=== PATIENT | female | born 1990 | race Caucasian/White ===

== ENCOUNTER 2016-11-01 08:50 | Emergency (ER) | payer MEDICAID, OTHER ==
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
[2016-11-01 10:27] VITALS: BP 106/78
== END 2016-11-01 10:15 | disposition home or self-care (01) ==
LOC: ER 08:50
DX: F41.9 Anxiety disorder, unspecified (principal)
CPT/HCPCS: 99283

== ENCOUNTER 2017-04-10 19:26 | Emergency (ER) | payer OTHER ==
[2017-04-10 20:49] VITALS: BP 111/76
== END 2017-04-10 23:00 | disposition left against medical advice (07) ==
LOC: ER 19:26
DX: Z53.9 Procedure and treatment not carried out, unspecified reason (principal); M79.673 Pain in unspecified foot

== ENCOUNTER 2017-08-18 10:17 | Emergency (ER) | payer OTHER, BC ==
[2017-08-18] MEDS ORDERED: DEXAMETHASONE SOD PHOS INJ 10 MG/1 ML VIAL IM ONE (10:47)
[2017-08-18 11:38] LABS: APPEARANCE,URINE SLIGHTLY-CLOUDY; BILIRUBIN,URINE NEGATIVE (NEGATIVE); COLOR,URINE YELLOW; GLUCOSE, URINE NEGATIVE (NEGATIVE); KETONES,URINE NEGATIVE (NEGATIVE); LEUKOCYTE ESTERASE,URINE LARGE (NEGATIVE); NITRITE,URINE NEGATIVE (NEGATIVE); PROTEIN,URINE NEGATIVE (NEGATIVE); URINE SPECIFIC GRAVITY 1.016; UROBILINOGEN,URINE NEGATIVE mg/dL (<2.0)
--- NOTE | 2017-08-18 13:05 | RADIOLOGY REPORT (SQ) ---
EXAM DESCRIPTION: L SPINE WHOLE COMPLETED DATE/TIME: 08/18/2017 12:47 pm REASON FOR STUDY: low back pain COMPARISON: None. NUMBER OF VIEWS: Five views including obliques. TECHNIQUE: AP, lateral, oblique, and sacral radiographic images acquired of the lumbar spine. LIMITATIONS: None. FINDINGS: MINERALIZATION: Normal. SEGMENTATION: Normal. No transitional anatomy. ALIGNMENT: Normal. VERTEBRAE: Maintained height. No fracture or worrisome bone lesion. DISCS: Preserved height. No significant osteophytes or end plate irregularity. POSTERIOR ELEMENTS: Pedicles and facets are intact. No pars defect or posterior arch defects. HARDWARE: None in the spine. PARASPINAL SOFT TISSUES: Normal. PELVIS: Intact as visualized. No fractures or worrisome bone lesions. SI joints intact. OTHER: No other significant finding. IMPRESSION: NORMAL 5 VIEW LUMBAR SPINE. TECHNICAL DOCUMENTATION: JOB ID: [id number] [employer]- All Rights Reserved
[2017-08-18 13:51] VITALS: BP 115/59
--- NOTE | 2017-08-18 13:58 | ER Document Report ---
ED Medical Screen (RME) - General Chief Complaint: Flank Pain Stated Complaint: BACK PAIN Time Seen by Provider: 08/18/17 10:36 Mode of Arrival: Ambulatory Information source: Patient Notes: This is a 26-year-old female with lower back pain radiating down the left buttock. 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 She denies any fever. She denies any vaginal discharge. She does have a history of kidney stones but this is not like her kidney stones. Patient states it is clearly worse when she leans forward. She denies any bowel or bladder incontinence. The patient denies any numbness to the saddle area. Patient denies any lower extremity weakness. TRAVEL OUTSIDE OF THE [place] IN LAST 30 DAYS: No - HPI Onset: Last week Onset/Duration: Gradual Quality of pain: Dull Severity: Moderate Pain Level: 3 Associated Symptoms: denies: Chills, Fever, Shortness of breath Exacerbated by: Movement Relieved by: Remaining still Similar symptoms previously: No Recently seen / treated by doctor: No - Related Data Smoking: Non-smoker Frequency of alcohol use: None Drug Abuse: None Allergies/Adverse Reactions: codeine [Codeine] Allergy (Verified 08/18/17 10:18) Past Medical History - General Information source: Patient - Social History Cigarette use (# per day): No Chew tobacco use (# tins/day): No Frequency of alcohol use: None Drug Abuse: None Lives with: Family Family history: None - Past Medical History Cardiac Medical History: Reports: None Pulmonary Medical History: Reports: None Neurological Medical History: Reports: Hx Migraine Endocrine Medical History: Reports: None Renal/ Medical History: Reports: Hx Kidney Stones. Denies: Hx Peritoneal Dialysis Musculoskeltal Medical History: Reports Hx Musculoskeletal Trauma - sprains Skin Medical History: Reports Hx Eczema Psychiatric Medical History: Reports: Hx Anxiety, Hx Depression Past Surgical History: Reports: Hx Myringotomy, Hx Tubal Ligation - Immunizations Immunizations up to date: No Hx Diphtheria, Pertussis, Tetanus Vaccination: No Review of Systems - Review of Systems Constitutional: denies: Chills, Fever EENT: No symptoms reported Cardiovascular: No symptoms reported Respiratory: No symptoms reported Gastrointestinal: No symptoms reported. denies: Abdominal pain, Diarrhea, Nausea, Vomiting Genitourinary: denies: Burning, Dysuria, Frequency Female Genitourinary: No symptoms reported Musculoskeletal: See HPI Skin: No symptoms reported Hematologic/Lymphatic: No symptoms reported Neurological/Psychological: No symptoms reported Physical Exam - Vital signs Vitals: Temp Pulse Resp BP Pulse Ox 98.3 F 87 20 111/69 99 08/18/17 10:22 08/18/17 10:22 08/18/17 10:22 08/18/17 10:22 08/18/17 10:22 Notes: Physical exam: GENERAL: 26-year-old female, alert and oriented 3, no acute distress. HEAD: Atraumatic, normocephalic. EYES: Pupils equal round and reactive to light, extraocular movements intact, sclera anicteric, conjunctiva are normal. ENT: TMs normal, nares patent, oropharynx clear without exudates. Moist mucous membranes. NECK: Normal range of motion, supple without obvious mass or JVD. LUNGS: Breath sounds clear to auscultation bilaterally and equal. No wheezes rales or rhonchi. HEART: Regular rate and rhythm without murmurs, rubs or gallops. ABDOMEN: Soft, normoactive bowel sounds. No tenderness to palpation. No guarding, no rebound. No masses appreciated. EXTREMITIES: Normal range of motion, no pitting or edema. No clubbing or cyanosis. NEUROLOGICAL: Cranial nerves II through XII grossly intact. Normal speech, moving all extremities. PSYCH: Normal mood, normal affect. SKIN: Warm, Dry, normal turgor, no rashes or lesions noted. Course - Re-evaluation Re-evalutation: 08/18/17 13:54 Note: Patient does have some white cells in the urine. I do not see any significant blood. I will treat her for UTI. I did send a urine culture. By her own accounts, this symptoms today are different than her kidney stones in the past. She does not have any tenderness over the CVA on the left (I do not think she has any pyelonephritis) on physical exam, patient seems to be uncomfortable when flexing forward. She is neurovascularly intact. 08/18/17 13:55 - Vital Signs Vital signs: Temp Pulse Resp BP Pulse Ox 98.6 F 93 16 115/59 L 99 08/18/17 13:50 08/18/17 13:50 08/18/17 13:50 08/18/17 13:50 08/18/17 13:50 - Laboratory Laboratory results interpreted by me: 08/18/17 11:00 Urine Blood SMALL H Ur Leukocyte Esterase LARGE H - Diagnostic Test Radiology reviewed: Image reviewed, Reports reviewed - LS spine films show no acute bony injury Doctor's Discharge - Discharge Clinical Impression: Back pain, UTI Condition: Stable Disposition: HOME, SELF-CARE Additional Instructions: Thank you for choosing [facility] for your care. The examination and treatment you have received in the Emergency Department today has been rendered on an emergency basis only and is not intended to be a substitute for complete medical care. You should contact your follow-up physician as it is important that she/he examine you for any new or remaining problems. If your problem worsens or new symptoms appear and you are unable to arrange prompt follow-up care, return to the Emergency Department. Specific signs to look out for: Fever (temperature greater than 100.4), worsening pain, weakness, or any concerns or getting worse per Any other instructions: Rest, try heating pads, take ibuprofen for the pain, take Percocet for pain unrelieved with the ibuprofen Primary Care Doctor's affiliated with [facility]: If you do not have a primary care doctor or you are unable to get an appointment during that time, you can try one of the doctor's below. These are internal medicine doctor's that have admitting priveledges to the hospital ( they will see you both in the office as well as in this hospital if you are ever hospitalized here). Dr. Suzan Campos [address], [place] [address] [phone] Dr Arrieta Address: [address] [place] [address] [place] [id number] Villalobos Address: [address] [place] [address] [place] [address] Prescriptions: Methocarbamol [Robaxin 500 mg Tablet] 500 mg PO BID #20 tablet Oxycodone HCl/Acetaminophen [Percocet 5-325 mg Tablet] 1 - 2 tab PO ASDIR PRN # 15 tablet PRN Reason: Forms: Return to Work
== END 2017-08-18 14:01 | disposition home or self-care (01) ==
LOC: ER 10:17
DX: N39.0 Urinary tract infection, site not specified (principal); M54.5 Low back pain; Z87.442 Personal history of urinary calculi; Z88.5 Allergy status to narcotic agent
CPT/HCPCS: 99284; 96372; 87086; 81025; 81001; 72110; J1100

== ENCOUNTER 2017-08-28 05:15 | Emergency (ER) | payer BC, OTHER ==
[2017-08-28 06:17] LABS: A TYPE INFLUENZA AG NEGATIVE (NEGATIVE)
[2017-08-28 06:18] LABS: B INFLUENZA AG NEGATIVE (NEGATIVE)
--- NOTE | 2017-08-28 07:22 | ER Document Report ---
ED General - General Chief Complaint: Cold Symptoms Stated Complaint: FLU LIKE SYMPTOMS Time Seen by Provider: 08/28/17 06:11 TRAVEL OUTSIDE OF THE [place] IN LAST 30 DAYS: No - HPI Patient complains to provider of: Flulike symptoms Notes: Patient coming in for evaluation of flulike symptoms. Patient states cough ongoing for the last 4 days. Patient denies any fevers chills nausea vomiting. Patient resting currently upon my evaluation patient denies any recent travel denies any recent antibiotics. Patient is Yobani been started on antibiotics patient states she took 1 patient is unaware of the antibiotic she took. - Related Data Allergies/Adverse Reactions: codeine [Codeine] Allergy (Verified 08/28/17 05:16) Past Medical History - Social History Smoking Status: Unknown if Ever Smoked Family History: CVA, DM, Hyperlipidemia, Hypertension, Malignancy, Thyroid Disfunction. denies: Arthritis Patient has suicidal ideation: No Patient has homicidal ideation: No Neurological Medical History: Reports: Hx Migraine Renal/ Medical History: Reports: Hx Kidney Stones. Denies: Hx Peritoneal Dialysis Musculoskeltal Medical History: Reports Hx Musculoskeletal Trauma - sprains Skin Medical History: Reports Hx Eczema Psychiatric Medical History: Reports: Hx Anxiety, Hx Depression Past Surgical History: Reports: Hx Myringotomy, Hx Tubal Ligation - Immunizations Immunizations up to date: No Hx Diphtheria, Pertussis, Tetanus Vaccination: No Review of Systems - Review of Systems Constitutional: No symptoms reported EENT: No symptoms reported Cardiovascular: No symptoms reported Respiratory: Cough Gastrointestinal: No symptoms reported Genitourinary: No symptoms reported Female Genitourinary: No symptoms reported Musculoskeletal: No symptoms reported Skin: No symptoms reported Hematologic/Lymphatic: No symptoms reported Neurological/Psychological: No symptoms reported -: Yes All other systems reviewed and negative Physical Exam - Vital signs Vitals: Temp Pulse Resp BP Pulse Ox 98.3 F 94 19 103/68 98 08/28/17 05:31 08/28/17 05:31 08/28/17 05:31 08/28/17 05:31 08/28/17 05:31 Interpretation: Normal - General General appearance: Appears well, Alert - HEENT Head: Normocephalic, Atraumatic Eyes: Normal Pupils: PERRL - Respiratory Respiratory status: No respiratory distress Chest status: Nontender Breath sounds: Nonproductive cough Chest palpation: Normal - Cardiovascular Rhythm: Regular Heart sounds: Normal auscultation Murmur: No - Abdominal Inspection: Normal Distension: No distension Bowel sounds: Normal Tenderness: Nontender Organomegaly: No organomegaly - Back Back: Normal, Nontender - Extremities General upper extremity: Normal inspection, Nontender, Normal color, Normal ROM , Normal temperature General lower extremity: Normal inspection, Nontender, Normal color, Normal ROM , Normal temperature, Normal weight bearing. No: Stiven's sign - Neurological Neuro grossly intact: Yes Cognition: Normal Orientation: AAOx4 Gilmer Coma Scale Eye Opening: Spontaneous Gilmer Coma Scale Verbal: Oriented [place] Coma Scale Motor: Obeys Commands Con[place]pc[place] Coma Scale Total: 15 Speech: Normal Motor strength normal: LUE, RUE, LLE, RLE Sensory: Normal - Psychological Associated symptoms: Normal affect, Normal mood - Skin Skin Temperature: Warm Skin Moisture: Dry Skin Color: Normal Course - Re-evaluation Re-evalutation: 08/28/17 15:16 Patient with a more likely viral story infection. Patient will be given loratadine D patient was encouraged to drink plenty of fluids follow-up primary care 08/28/17 15:17 Patient is to stop antibiotics - Vital Signs Vital signs: Temp Pulse Resp BP Pulse Ox 98.8 F 82 18 109/72 97 08/28/17 07:41 08/28/17 07:41 08/28/17 07:41 08/28/17 07:41 08/28/17 07:41 Discharge - Discharge Clinical Impression: Viral URI Condition: Good Disposition: HOME, SELF-CARE Instructions: Upper Respiratory Illness ([facility]) Additional Instructions: Your examination today is consistent with a viral upper respiratory infection. You can expect to continue to have symptoms for the next 3-4 days. You can expect to have a cough for the next 2-3 weeks. Recommend taking honey for your cough may also try [id number] medications for your symptoms. I would recommend taking a Claritin-D to help out with your congestion and nasal drainage. Continue to drink plenty water to stay hydrated follow-up with your primary care physician return to ER symptoms worsen. Prescriptions: Loratadine/Pseudoephedrine [Claritin-D 12 Hour Tablet] 1 each PO BID #30 tab.er.[id number] Forms: Return to Work
[2017-08-28 07:43] VITALS: BP 109/72
== END 2017-08-28 07:44 | disposition home or self-care (01) ==
LOC: ER 05:15
DX: J06.9 Acute upper respiratory infection, unspecified (principal); B37.89 Other sites of candidiasis; R05 Cough
CPT/HCPCS: 87804; 99283

== ENCOUNTER 2018-08-20 19:08 | Emergency (ER) | payer BC, OTHER ==
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
[2018-08-21 00:35] VITALS: BP 121/70
== END 2018-08-20 23:50 | disposition home or self-care (01) ==
LOC: ER 19:08
DX: H66.002 Acute suppurative otitis media without spontaneous rupture of ear drum, left ear (principal); T75.89XA Other specified effects of external causes, initial encounter; X58.XXXA Exposure to other specified factors, initial encounter; Y92.009 Unspecified place in unspecified non-institutional (private) residence as the place of occurrence of the external cause; H92.02 Otalgia, left ear; Z87.442 Personal history of urinary calculi; Z98.51 Tubal ligation status; Z88.6 Allergy status to analgesic agent
CPT/HCPCS: 36415; 82375; 99283

== ENCOUNTER 2018-08-21 17:29 | Emergency (ER) | payer BC ==
[2018-08-21] MEDS ORDERED: IPRATROPIUM/ALBUTEROL 0.5-2.5 MG/3 ML AMPUL NEB ONE (19:37)
--- NOTE | 2018-08-21 19:41 | ER Document Report ---
ED Medical Screen (RME) - General Chief Complaint: Chest Pain Stated Complaint: CHEST PAIN Time Seen by Provider: 08/21/18 19:25 Mode of Arrival: Ambulatory Information source: Patient Notes: This is a 27-year-old female with no significant medical problems who presents to the emergency room with chest tightness and shortness of breath. Patient states that yesterday she turned and had sharp left chest pain radiating to the back. She states that later in the day her carbon monoxide alarm went off and she came here as possible exposure to carbon monoxide. Her CO level was normal at that time. Patient states that since that time she has had persistent left- sided chest pain with movement. She is also developed a hoarse voice and a dry cough and she feels like she has tightness and difficulty breathing. and difficulty breathing. TRAVEL OUTSIDE OF THE [place] IN LAST 30 DAYS: No - Related Data Allergies/Adverse Reactions: codeine [Codeine] Allergy (Verified 08/20/18 19:10) Past Medical History - Social History Chew tobacco use (# tins/day): No Frequency of alcohol use: None Drug Abuse: None Family history: None Neurological Medical History: Reports: Hx Migraine Renal/ Medical History: Reports: Hx Kidney Stones. Denies: Hx Peritoneal Dialysis Musculoskeltal Medical History: Reports Hx Musculoskeletal Trauma - sprains Skin Medical History: Reports Hx Eczema Psychiatric Medical History: Reports: Hx Anxiety, Hx Depression Past Surgical History: Reports: Hx Myringotomy, Hx Tubal Ligation - Immunizations Immunizations up to date: No Hx Diphtheria, Pertussis, Tetanus Vaccination: No Physical Exam - Vital signs Vitals: Temp Pulse Resp BP Pulse Ox 97.7 F 82 16 113/65 100 08/21/18 17:52 08/21/18 17:52 08/21/18 17:52 08/21/18 17:52 08/21/18 17:52 Notes: Physical exam: GENERAL: HEAD: Atraumatic, normocephalic. EYES: Pupils equal round and reactive to light, extraocular movements intact, sclera anicteric, conjunctiva are normal. ENT: Right TM slightly cloudy, left TM erythematous and cloudy, nares patent, oropharynx clear without exudates. Moist mucous membranes. NECK: Normal range of motion, supple without obvious mass or JVD. LUNGS: Breath sounds clear to auscultation bilaterally and equal. No wheezes rales or rhonchi. HEART: Regular rate and rhythm without murmurs, rubs or gallops. ABDOMEN: Soft, normoactive bowel sounds. No tenderness to palpation. No guarding, no rebound. No masses appreciated. EXTREMITIES: Normal range of motion, no pitting or edema. No clubbing or cyanosis. NEUROLOGICAL: Cranial nerves II through XII grossly intact. Normal speech, moving all extremities. PSYCH: Normal mood, normal affect. SKIN: Warm, Dry, normal turgor, no rashes or lesions noted. Course - Vital Signs Vital signs: Temp Pulse Resp BP Pulse Ox 97.7 F 82 16 113/65 100 08/21/18 17:52 08/21/18 17:52 08/21/18 17:52 08/21/18 17:52 08/21/18 17:52
--- NOTE | 2018-08-21 20:04 | RADIOLOGY REPORT (SQ) ---
EXAM DESCRIPTION: XR CHEST 2 VIEWS COMPLETED DATE/TME: 08/21/2018 19:38 CLINICAL HISTORY: 27 years, Female, sob Heart is not enlarged. No consolidation or pleural effusion. No pulmonary edema or pneumothorax. IMPRESSION: No acute disease.
[2018-08-21] MEDS ORDERED: NORMAL SALINE 1000 ML 1,000 ML IV ONE (20:17)
[2018-08-21 20:53] LABS: ABSOLUTE BASOPHILS # (AUTO) 0.1 10^3/uL (0.0-0.2); ABSOLUTE EOSINOPHILS # (AUTO) 0.4 10^3/uL (0.0-0.6); ABSOLUTE LYMPHOCYTES (AUTO) 3.3 10^3/uL (0.5-4.7); ABSOLUTE MONOCYTES (AUTO) 0.6 10^3/uL (0.1-1.4); ABSOLUTE NEUT (AUTO) 5.3 10^3/uL (1.7-8.2); BASOPHILS % (AUTO) 0.7 % (0-2); EOSINOPHILS % (AUTO) 3.9 % (0-6); HEMATOCRIT 38.9 % (36.0-47.0); HEMOGLOBIN 13.6 g/dL (12.0-15.5); LYMPHOCYTES % (AUTO) 34.1 % (13-45); MEAN CORPUSCULAR HEMOGLOBIN 30.2 pg (27.0-33.4); MEAN CORPUSCULAR VOLUME 86 fl (80-97); MONOCYTES % (AUTO) 5.9 % (3-13); PLATELET COUNT 374 10^3/uL (150-450); RED BLOOD COUNT 4.51 10^6/uL (3.72-5.28); RED CELL DISTRIBUTION WIDTH 13.6 % (11.5-14.0); SEGMENTED NEUTROPHILS % (AUTO) 55.4 % (42-78); TOTAL CELLS COUNTED % (AUTO) 100 %; WHITE BLOOD COUNT 9.6 10^3/uL (4.0-10.5)
[2018-08-21] MEDS ORDERED: KETOROLAC TROMETHAMINE 60 MG/2 ML SDV IM ONE (20:59)
[2018-08-21] MEDS ORDERED: LIDOCAINE 5% (700 MG) TRANSDERMAL ADH..PATCH TP ONE (20:59)
[2018-08-21 21:09] LABS: ALANINE AMINOTRANSFERASE 11 U/L (9-52); ALBUMIN 5.1 g/dL (3.5-5.0); ALKALINE PHOSPHATASE 50 U/L (38-126); ANION GAP 11 (5-19); ASPARTATE AMINO TRANSFERASE 24 U/L (14-36); BILIRUBIN,DIRECT 0.3 mg/dL (0.0-0.4); BILIRUBIN,TOTAL 1.7 mg/dL (0.2-1.3); BLOOD UREA NITROGEN 14 mg/dL (7-20); CALCIUM 9.3 mg/dL (8.4-10.2); CARBON DIOXIDE 25 mmol/L (22-30); CHLORIDE 103 mmol/L (98-107); GLUCOSE 84 mg/dL (75-110); SODIUM 139.2 mmol/L (137-145); TOTAL PROTEIN 8.6 g/dL (6.3-8.2)
--- NOTE | 2018-08-21 21:12 | EKG REPORT ---
SEVERITY:- NORMAL ECG - SINUS RHYTHM : Confirmed by: Beena Sellers MD 21-Aug-2018 21:11:56
--- NOTE | 2018-08-21 22:33 | ER Document Report ---
ED General - General Chief Complaint: Chest Pain Stated Complaint: CHEST PAIN Time Seen by Provider: 08/21/18 19:25 Mode of Arrival: Ambulatory Notes: Patient is a 27-year-old female who presents with complaints of chest pain shortness of breath. Patient states that the symptoms started yesterday, she was tested for possible carbon monoxide exposure and was found to be negative. She returns today as she states that her symptoms have not improved. She describes the pain as being in the right center of her chest and is a stabbing, aching, intermittent pain. Moving, coughing or pressing the area worsens the pain. Nothing improves the pain. Denies any history of similar symptoms in the past. Denies any use of estrogen, history of DVT or pulmonary embolus. No pleuritic pain. No fever or constitutional symptoms. Has had a cough. TRAVEL OUTSIDE OF THE [place] IN LAST 30 DAYS: No - Related Data Allergies/Adverse Reactions: codeine [Codeine] Allergy (Verified 08/20/18 19:10) Past Medical History - General Information source: Patient - Social History Smoking Status: Never Smoker Chew tobacco use (# tins/day): No Frequency of alcohol use: None Drug Abuse: None Lives with: Family Family History: CVA, DM, Hyperlipidemia, Hypertension, Malignancy, Thyroid Disfunction. denies: Arthritis Patient has suicidal ideation: No Patient has homicidal ideation: No Neurological Medical History: Reports: Hx Migraine Renal/ Medical History: Reports: Hx Kidney Stones. Denies: Hx Peritoneal Dialysis Musculoskeletal Medical History: Reports Hx Musculoskeletal Trauma - sprains Skin Medical History: Reports Hx Eczema Psychiatric Medical History: Reports: Hx Anxiety, Hx Depression Past Surgical History: Reports: Hx Myringotomy, Hx Tubal Ligation - Immunizations Immunizations up to date: No Hx Diphtheria, Pertussis, Tetanus Vaccination: No Review of Systems - Review of Systems Notes: Constitutional: Negative for fever. HENT: Negative for sore throat. Eyes: Negative for visual changes. Cardiovascular: Positive chest wall pain Respiratory: Positive for shortness of breath. Gastrointestinal: Negative for abdominal pain, vomiting or diarrhea. Genitourinary: Negative for dysuria. Musculoskeletal: Negative for back pain. Skin: Negative for rash. Neurological: Negative for headaches, weakness or numbness. 10 point ROS negative except as marked above and in HPI. Physical Exam - Vital signs Vitals: Temp Pulse Resp BP Pulse Ox 97.7 F 82 16 113/65 100 08/21/18 17:52 08/21/18 17:52 08/21/18 17:52 08/21/18 17:52 08/21/18 17:52 Interpretation: Normal Notes: PHYSICAL EXAMINATION: GENERAL: Well-appearing, well-nourished and in no acute distress. HEAD: Atraumatic, normocephalic. EYES: Pupils equal round and reactive to light, extraocular movements intact, sclera anicteric, conjunctiva are normal. ENT: nares patent, oropharynx clear without exudates. Moist mucous membranes. NECK: Normal range of motion, supple without lymphadenopathy LUNGS: Breath sounds clear to auscultation bilaterally and equal. No wheezes rales or rhonchi. HEART: Regular rate and rhythm without murmurs ABDOMEN: Soft, nontender, normoactive bowel sounds. No guarding, no rebound. No masses appreciated. EXTREMITIES: Normal range of motion, no pitting or edema. No cyanosis. NEUROLOGICAL: No focal neurological deficits. Moves all extremities spontaneously and on command. PSYCH: Normal mood, normal affect. SKIN: Warm, Dry, normal turgor, no rashes or lesions noted. Course - Re-evaluation Re-evalutation: 08/21/18 22:31 Patient presents with a clinical history and exam most consistent with an acute viral upper respiratory infection with likely associated muscular skeletal discomfort. Patient is presenting complaining of intermittent shortness of breath and chest discomfort with moving or coughing. Patient is overall well in appearance without tachypnea, hypoxemia, tachycardia, or difficulty with ambulation. Breath sounds are clear bilaterally. No fever. Patient does have additional signs of upper respiratory infection including nasal congestion, sore throat, and sinus pressure. chest x-ray, EKG, laboratories including a single troponin are all unremarkable. PERC criteria negative. At this time will discharge with return precautions and follow-up recommendations. Verbal discharge instructions given a the bedside and opportunity for questions given. Medication warnings reviewed. Patient is in agreement with this plan and has verbalized understanding of return precautions and the need for primary care follow-up in the next 24-72 hours. 08/21/18 22:32 - Vital Signs Vital signs: Temp Pulse Resp BP Pulse Ox 97.7 F 82 23 H 111/73 85 L 08/21/18 17:52 08/21/18 17:52 08/21/18 23:01 08/21/18 23:00 08/21/18 23:01 - Laboratory Result Diagrams: 08/21/18 20:40 08/21/18 20:40 Laboratory results interpreted by me: 08/21/18 20:40 Total Bilirubin 1.7 H Total Protein 8.6 H Albumin 5.1 H - Diagnostic Test Radiology reviewed: Image reviewed, Reports reviewed Radiology results interpreted by me: 08/21/18 22:31 Chest x-ray: No acute infiltrate or pneumothorax - EKG Interpretation by Me Additional EKG results interpreted by me: 08/21/18 22:31 Sinus rhythm, rate 85. No ST elevations or depressions. QTC is 414. Discharge - Discharge Clinical Impression: Shortness of breath, Chest discomfort Condition: Good Disposition: HOME, SELF-CARE Additional Instructions: You were seen today for chest pain. The exact cause of your pain is unclear but is likely related to underlying chest wall irritation. However, based on your cardiac enzyme testing, chest x-ray, and EKG it does not appear that it is from an immediately life-threatening cause at this time. Please return to emergency department immediately if you have worsening of your chest pain, shortness of breath, vomiting, become unable to exert yourself due to pain or difficulty breathing, you pass out, or have any pain that radiates into your arms, jaw, or back. Please also return if you have any additional symptoms that are concerning to you. Forms: Return to Work
[2018-08-21 23:28] VITALS: BP 111/73
== END 2018-08-21 23:35 | disposition home or self-care (01) ==
LOC: ER 17:29
DX: R07.89 Other chest pain (principal); R06.02 Shortness of breath; R05 Cough; R09.81 Nasal congestion; J02.9 Acute pharyngitis, unspecified; J34.89 Other specified disorders of nose and nasal sinuses; Z88.5 Allergy status to narcotic agent
CPT/HCPCS: 93005; 99285; 96372; 36415; 84702; 85025; 80053; 84484; 71046; 93010; J1885; J7030; J7620; 96360

== ENCOUNTER 2018-09-08 22:58 | Emergency (ER) | payer BC ==
--- NOTE | 2018-09-09 00:32 | ER Document Report ---
ED General - General Chief Complaint: Ear Pain Stated Complaint: EAR PAIN Time Seen by Provider: 09/09/18 00:27 Mode of Arrival: Ambulatory Information source: Patient TRAVEL OUTSIDE OF THE [place] IN LAST 30 DAYS: No - HPI Patient complains to provider of: Left earache, foul-smelling otorrhea Onset: Last week Onset/Duration: Gradual Quality of pain: No pain Severity: Moderate Context: Tympanostomy tubes as a child. Associated symptoms: denies: Chills, Fever, Headache, Nausea, Vomiting, Slow to respond, Sore throat Exacerbated by: Denies Relieved by: Denies Similar symptoms previously: Yes Recently seen / treated by doctor: Yes Notes: 27-year-old female coming in today with left ear drainage. States it is clear and cloudy and looks like pus and smells terrible. Patient has history of tympanostomy tubes in the past. The right ear is still retained. Left ear you cannot tell. Patient was seen here about a week ago and given amoxicillin 500 mg 3 times a day. Patient states that did nothing to change the infection in her left ear. She has not seen ear nose and throat for this yet. - Related Data Allergies/Adverse Reactions: codeine [Codeine] Allergy (Verified 08/20/18 19:10) Past Medical History - General Information source: Patient - Social History Smoking Status: Current Every Day Smoker Chew tobacco use (# tins/day): No Frequency of alcohol use: None Drug Abuse: None Family History: Reviewed & Not Pertinent, CVA, DM, Hyperlipidemia, Hypertension, Malignancy, Thyroid Disfunction. denies: Arthritis Patient has suicidal ideation: No Patient has homicidal ideation: No Neurological Medical History: Reports: Hx Migraine Renal/ Medical History: Reports: Hx Kidney Stones. Denies: Hx Peritoneal Dialysis Musculoskeletal Medical History: Reports Hx Musculoskeletal Trauma - sprains Skin Medical History: Reports Hx Eczema Psychiatric Medical History: Reports: Hx Anxiety, Hx Depression Past Surgical History: Reports: Hx Myringotomy, Hx Tubal Ligation - Immunizations Immunizations up to date: No Hx Diphtheria, Pertussis, Tetanus Vaccination: No Review of Systems - Review of Systems Notes: Constitutional: No fevers. No chills. EENT: No eye redness. No eye pain. No ear pain. No sore throat. Drainage from left ear Cardiovascular: No chest pain. No palpitations. Respiratory: No cough. No shortness of breath. No respiratory distress. Gastrointestinal: No abdominal pain. No nausea, vomiting, or diarrhea. Genitourinary: Atraumatic. No lesions. No pain. No discharge. Musculoskeletal: Atraumatic. No swelling. No deformities. Skin: No rash or lesions. Lymphatic: No swollen lymph nodes. Neurologic: No headache. No syncope. Psychiatric: No suicidal or homicidal ideation. Physical Exam - Vital signs Vitals: Temp Pulse Resp BP Pulse Ox 98.5 F 86 18 107/65 98 09/08/18 23:38 09/08/18 23:38 09/08/18 23:38 09/08/18 23:38 09/08/18 23:38 - Notes Notes: General: Well-developed, well-nourished. In no acute distress. Non-toxic appearing. Cardiac: Well-perfused. Regular rate and rhythm. No murmurs, rubs, or gallops. Pulmonary: No respiratory distress. No cyanosis. Bilateral lung fiels are clear to auscultation. Abdominal: Non-distended. Non-rigid. Bowels sounds are present in all four quadrants. No guarding or rebound. HEENT: Head is atraumatic. Conjunctivae not reddened. No tearing. PERRL. EOMI. Orbits atraumatic. No periorbital swelling or erythema. Oropharynx is without erythema, swelling, or exudates. Left tympanic membrane is bulging. There appears to be a little bit of swelling of the left ear canal with trace exudates present. There is no active otorrhea to culture. There is no periauricular adenopathy. There is no mastoid tenderness. The external ear is not swollen or cellulitic. Neck: Supple. No adenopathy. No meningismus. Dermatologic: Warm with good turgor. No rash. Atraumatic. Chest: Atraumatic. No chest wall tenderness to palpation. Musculoskeletal: Moves all extremities well. No range of motion deficits. no muscular or joint tenderness. No paraspinal muscle tenderness. no midline spinal tenderness or step-off. Genitourinary: Examination deferred Neurologic: No gross neurologic deficits. Psychiatric: Normal mood. Course - Re-evaluation Re-evalutation: 09/09/18 00:32 Suspect complicated ear infection. Will refer patient to bearing grinder. I will go ahead and start her on Stack Bactrim and Ceftin ear for 10 days and put her on some oFloxicin topically. - Vital Signs Vital signs: Temp Pulse Resp BP Pulse Ox 98.5 F 86 18 107/65 98 09/08/18 23:38 09/08/18 23:38 09/08/18 23:38 09/08/18 23:38 09/08/18 23:38 Discharge - Discharge Clinical Impression: Otitis media Qualifiers: Otitis media type: unspecified Chronicity: chronic Qualified Code(s): H66.90 - Otitis media, unspecified, unspecified ear Otitis externa Qualifiers: Otitis externa type: swimmer's ear Chronicity: chronic Laterality: left Qualified Code(s): H60.332 - Swimmer's ear, left ear Condition: Good Disposition: HOME, SELF-CARE Instructions: Otitis Externa ([facility]), Otitis Media ([facility]) Prescriptions: Tramadol HCl/Acetaminophen [Ultracet 37.5 mg/325 mg Tablet] 1 each PO Q6HP PRN #10 tablet PRN Reason: Cefdinir 300 mg PO BID 10 Days #20 capsule Ofloxacin [Floxin] 5 drop OT BID 10 Days #10 ml Referrals: [facility] [Provider Group] - Follow up tomorrow
[2018-09-09 01:04] VITALS: BP 106/53
== END 2018-09-09 01:04 | disposition home or self-care (01) ==
LOC: ER 22:58
DX: H66.90 Otitis media, unspecified, unspecified ear (principal); H60.332 Swimmer's ear, left ear; H92.02 Otalgia, left ear; F17.200 Nicotine dependence, unspecified, uncomplicated
CPT/HCPCS: 99282

== ENCOUNTER 2018-12-11 15:19 | Emergency (ER) | payer BC ==
--- NOTE | 2018-12-11 15:58 | ER Document Report ---
ED Neck/Back Problem - General Chief Complaint: Low Back Pain Stated Complaint: BACK PAIN Time Seen by Provider: 12/11/18 15:43 Mode of Arrival: Ambulatory Information source: Patient Notes: 28-year-old female presented to ED for complaint of left flank and lower back pain. She states the low back pain is all the way across. She states there is an increase in pain over the last couple days. She states the night before last she was sitting ready to get up and she had some sharp pain she tried to use heating pad use [id number] medication and the pain got worse and she was not able to sleep. 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 She states she thought this was just having pain because her cycles the. But the pain is not getting better and she has not started her cycle. She states a 4 days ago she went to wipe and she had some blood in her urine and then again today but she has not started her cycle. Denies any abdominal pain or any abdominal cramping. TRAVEL OUTSIDE OF THE [place] IN LAST 30 DAYS: No - HPI Patient complains to provider of: Pain, Lower back Onset: Other - Off and on for the last week worse today Onset: Gradual Timing: Waxing and waning Quality of pain: Cramping, Sharp Severity: Severe Pain Level: 5 Context: Bending, Lifting, Turning Recent injury: Possibly Associated symptoms: Like prior neck/back pain, Lower back pain. denies: Constipation, Fever, Incontinence, Motor loss, Numbness/tingling, Radiation to arm, Radiation to chest, Radiation to leg, Sensory loss, Sweaty, Unable to urinate, Upper back pain Exacerbated by: Nothing Relieved by: Nothing Similar symptoms previously: Yes Recently seen / treated by doctor: No - Related Data Allergies/Adverse Reactions: codeine [Codeine] Allergy (Verified 12/11/18 15:19) Past Medical History - General Information source: Patient - Social History Smoking Status: Never Smoker Cigarette use (# per day): No Chew tobacco use (# tins/day): No Frequency of alcohol use: None Drug Abuse: None Occupation: Childcare Family History: Reviewed & Not Pertinent, CVA, DM, Hyperlipidemia, Hypertension, Malignancy, Thyroid Disfunction. denies: Arthritis Patient has suicidal ideation: No Patient has homicidal ideation: No - Past Medical History Cardiac Medical History: Reports: None Pulmonary Medical History: Reports: None EENT Medical History: Reports: None Neurological Medical History: Reports: Hx Migraine Endocrine Medical History: Reports: None Renal/ Medical History: Reports: Hx Kidney Stones Malignancy Medical History: Reports: None GI Medical History: Reports: None Musculoskeletal Medical History: Reports Hx Musculoskeletal Trauma - sprains Skin Medical History: Reports Hx Eczema Psychiatric Medical History: Reports: Hx Anxiety, Hx Depression Traumatic Medical History: Reports: None Infectious Medical History: Reports: None Past Surgical History: Reports: Hx Myringotomy - Immunizations Immunizations up to date: No Hx Diphtheria, Pertussis, Tetanus Vaccination: No Review of Systems - Review of Systems Constitutional: No symptoms reported EENT: No symptoms reported Cardiovascular: No symptoms reported Respiratory: No symptoms reported Gastrointestinal: No symptoms reported Genitourinary: No symptoms reported Female Genitourinary: No symptoms reported Musculoskeletal: Back pain, Muscle pain, Muscle stiffness Skin: No symptoms reported Hematologic/Lymphatic: No symptoms reported Neurological/Psychological: No symptoms reported -: Yes All other systems reviewed and negative Physical Exam - Vital signs Vitals: Temp Pulse BP Pulse Ox 98.2 F 101 H 92/60 L 100 12/11/18 15:23 12/11/18 15:23 12/11/18 15:23 12/11/18 15:23 Interpretation: Normal - General General appearance: Appears well, Alert - HEENT Head: Normocephalic, Atraumatic Eyes: Normal Pupils: PERRL - Respiratory Respiratory status: No respiratory distress Chest status: Nontender Breath sounds: Normal Chest palpation: Normal - Cardiovascular Rhythm: Regular Heart sounds: Normal auscultation Murmur: No - Abdominal Inspection: Normal Distension: No distension Bowel sounds: Normal Tenderness: Nontender Organomegaly: No organomegaly - Back Back: Normal, Tender. No: Deformity/step-off, CVA tenderness, Vertebra tenderness, Scars, Scoliosis, Wounds Notes: No loss control of bowel bladder, no saddle anesthesia, no loss of control or sensation to the lower extremities. Patient states the pain is all the way across the lower back and sometimes she has some "funny feeling" in her left flank. There is absolutely no tenderness to the left flank at this time. She states she has had intermittent spotting but it is time for her menstrual cycle. - Extremities General upper extremity: Normal inspection, Nontender, Normal color, Normal ROM, Normal temperature General lower extremity: Normal inspection, Nontender, Normal color, Normal ROM, Normal temperature, Normal weight bearing. No: Stiven's sign - Neurological Neuro grossly intact: Yes Cognition: Normal Orientation: AAOx4 [place] Coma Scale Eye Opening: Spontaneous [place] Coma Scale Verbal: Oriented [place] Coma Scale Motor: Obeys Commands [place] Coma Scale Total: 15 Speech: Normal Motor strength normal: LUE, RUE, LLE, RLE Sensory: Normal - Psychological Associated symptoms: Normal affect, Normal mood - Skin Skin Temperature: Warm Skin Moisture: Dry Skin Color: Normal Course - Re-evaluation Re-evalutation: 12/11/18 20:36 After performing a Medical Screening Examination, I estimate there is LOW risk for EXPANDING OR RUPTURED ABDOMINAL AORTIC ANEURYSM, CAUDA EQUINA SYNDROME, EPIDURAL MASS LESION, or HERNIATED DISK CAUSING SEVERE SPINAL STENOSIS, thus I consider the discharge disposition reasonable. I have reevaluated this patient multiple times and no significant life threatening changes are noted. The patient and I have discussed the diagnosis and risks, and we agree with discharging home and close follow-up. We also discussed returning to the Emergency Department immediately if new or worsening symptoms occur with the understanding that symptoms and presentations can change. We have discussed the symptoms which are most concerning (e.g., saddle anesthesia, urinary or bowel incontinence or retention, changing or worsening pain) that necessitate immediate return. She had a very minimal possible left ureteral stone. Patient was treated with Toradol and IV fluids and discharged home with prescription for muscle relaxants for her low back pain that is chronic with an exacerbation. There is very minimal pain or discomfort in the flank area. - Vital Signs Vital signs: Temp Pulse Resp BP Pulse Ox 98.2 F 78 16 107/74 100 12/11/18 18:48 12/11/18 18:48 12/11/18 18:48 12/11/18 18:48 12/11/18 18:48 - Laboratory Laboratory results interpreted by me: 12/11/18 15:20 Urine Protein 30 H Urine Ketones TRACE H Urine Blood SMALL H Ur Leukocyte Esterase TRACE H - Diagnostic Test Radiology reviewed: Image reviewed, Reports reviewed Discharge - Discharge Clinical Impression: Left ureteral stone Low back pain Qualifiers: Chronicity: acute Back pain laterality: bilateral Sciatica presence: without sciatica Qualified Code(s): M54.5 - Low back pain Condition: Stable Disposition: HOME, SELF-CARE Instructions: Family Physicians / Practices Additional Instructions: KIDNEY STONE: You are passing or have passed a kidney stone. These stones are usually due to increased calcium or uric acid concentrations in your urine. Stones within the kidney itself are not painful. The pain occurs as the stone leaves the kidney to pass down the long tube, called the ureter, leading to the bladder. If the stone is small, it will usually pass by itself. Most patients can pass the stone at home. You will usually receive medications for pain, nausea or vomiting, and sometimes a medication to assist in passing the kidney stone. However, if the pain is very severe or if vomiting prevents you from taking oral pain medications, you may need to return for further treatment. Drink three or four quarts of fluids per day. You will be given pain medication (if needed) and urine strainers. Strain all your urine to see if the stone passes. If your doctor has asked you to bring the stone in for analysis, return with the stone once it has passed. Return if pain or vomiting become severe, if you develop a high fever, if you are unable to pass your urine, or if other unusual symptoms occur. LOW BACK PAIN: Three out of every four people will have an episode of disabling back pain during their lifetime. Most commonly the pain is due to straining of the muscles and ligaments in the low back. Usual treatment includes: (1) Rest on a firm surface. Avoid lying on your stomach. (2) Ice pack the painful area. After a few days, gentle heat may be used intermittently to relax the area, or ice packs can be continued. (3) Medication may be needed -- muscle relaxers and antiinflammatory medicines are commonly used. (4) As the back improves, exercises are prescribed to strengthen the back and abdominal muscles. Your doctor will advise you on the proper care for your back at each stage in your recovery. You may be better in a few days -- or healing may take several weeks. If new symptoms of a "herniated disc" (radiation of pain, numbness, or tingling down the back of the leg or weakness in the leg) occur, you should be re-examined. Further testing may be necessary. MUSCLE RELAXERS: Muscle relaxing medications are usually prescribed for acute muscle spasm or injury to the neck and back. They are often combined with antiinflammatory pain medication for increased relief. You may stop the muscle relaxer when the pain and stiffness have improved. Start the medication again if spasms recur. Muscle relaxers may cause drowsiness, especially with the first dose. Do not operate machinery or drive while under the effects of the medication. Most muscle relaxers last up to 24 hours. Do not combine the medication with alcoho l. ICE PACKS: Apply ice packs frequently against the painful area. Many different schedules are recommended, such as "20 minutes on, 20 minutes off" or "one hour ice, two hours rest." If you need to work, you may need to go longer between ice treatments. You should plan to have the area ice packed AT LEAST one fourth of the time. The ice should be applied over the wrap, tape, or splint, or over a layer of cloth -- not directly against the skin. Some ice bags have a built-in cloth and can be put directly on the skin. WARM PACKS: After approximately two days, apply gentle heat (such as a heating pad or hot water bottle) for about 20 to 30 minutes about every two hours -- at least four times daily. Warmth and elevation will help you make a more rapid recovery, and will ease the pain considerably. Do not use HOT heat, and never apply heat for longer than 30 minutes. The continuous heat can invisibly damage skin and muscles -- even when no burn is seen on the surface. Damaged muscles can make you MORE sore. TORADOL INJECTION: You have been given an injection of ketorolac tromethamine (Toradol). This is an excellent, safe drug for pain control. It also has potent antiinflammatory action. You should have significant pain relief within about one hour. Toradol is not addicting and is non-sedating. It does not interfere with driving or work. Call or return if you develop itching, hives, shortness of breath, or rash. Intravenous (IV) Fluids As part of your care today, you received intravenous (IV) fluids. IV fluids are administered to patients who are dehydrated or to those who have certain chemical (electrolyte) abnormalities that need correcting. Stretching Exercises for the Back The physician has recommended that you begin stretching exercises for your back. These are often used even while the back is painful. However, you should notify the physician if the activities seem to increase your pain. PELVIC TILT: Lie flat on your back with knees bent. Tighten your stomach and buttock muscles so it flattens your lower back against the floor. Hold 10 seconds. Repeat 10 times, twice daily. KNEE RAISE: Lying on the back with knees bent, raise one knee to your chest, then the other. Hold both knees against the chest 10 seconds, then lower one knee at a time. Repeat 10 times, twice daily. PARTIAL TRUNK RAISE: Lie face down, arms at your sides. Keeping your waist on the floor, use your arms raise your chest up. Support yourself on your elbows for 30 seconds. Repeat twice daily, increasing the time to two minutes as you recover. FOLLOW-UP CARE: If you have been referred to a physician for follow-up care, call the physicians office for an appointment as you were instructed or within the next two days. If you experience worsening or a significant change in your symptoms, notify the physician immediately or return to the Emergency Department at any time for re-evaluation. Prescriptions: Cyclobenzaprine HCl [Flexeril 10 mg Tablet] 10 mg PO TIDP PRN #15 tab PRN Reason: Forms: Return to Work
[2018-12-11 16:16] LABS: APPEARANCE,URINE SLIGHTLY-CLOUDY; BILIRUBIN,URINE NEGATIVE (NEGATIVE); CALCIUM OXALATE CRYSTALS,URINE MODERATE /HPF; COLOR,URINE YELLOW; GLUCOSE, URINE NEGATIVE (NEGATIVE); KETONES,URINE TRACE mg/dL (NEGATIVE); LEUKOCYTE ESTERASE,URINE TRACE (NEGATIVE); NITRITE,URINE NEGATIVE (NEGATIVE); PROTEIN,URINE 30 mg/dL (NEGATIVE); URINE SPECIFIC GRAVITY 1.032; UROBILINOGEN,URINE NEGATIVE mg/dL (<2.0)
[2018-12-11] MEDS ORDERED: KETOROLAC TROMETHAMINE 60 MG/2 ML SDV IM ONE (16:50)
[2018-12-11] MEDS ORDERED: NORMAL SALINE 1000 ML 1,000 ML IV ONE (17:09)
[2018-12-11] MEDS ORDERED: KETOROLAC TROMETHAMINE INJ/PF 30 MG/1 ML SDV IV ONE (17:09)
--- NOTE | 2018-12-11 17:37 | RADIOLOGY REPORT (SQ) ---
EXAM DESCRIPTION: CT ABD/PELVIS NO ORAL OR IV COMPLETED DATE/TIME: 12/11/2018 5:16 pm REASON FOR STUDY: left flank pain COMPARISON: None. TECHNIQUE: CT scan of the abdomen and pelvis performed without intravenous or oral contrast. Images reviewed with lung, soft tissue, and bone windows. Reconstructed coronal and sagittal MPR images revi ewed. All images stored on PACS. All CT scanners at this facility use dose modulation, iterative reconstruction, and/or weight based d osing when appropriate to reduce radiation dose to as low as reasonably achievable (ALARA). [facility]: Dose Right [facility]: CareDose [facility]: Dose Right [facility]: Teradose 4D [facility]: Smart Curves RADIATION DOSE: CT Rad equipment meets quality standard of care and radiation dose reduction techniq ues were employed. CTDIvol: 7.7 mGy. DLP: 440 mGy-cm.mGy. LIMITATIONS: None. FINDINGS: LOWER CHEST: No significant findings. No nodules or infiltrates. NON-CONTRASTED LIVER, SPLEEN, ADRENALS: Evaluation limited by lack of IV contrast. No identified sign ificant masses. PANCREAS: No masses. No peripancreatic inflammatory changes. GALLBLADDER: No identified stones by CT criteria. No inflammatory changes to suggest cholecystitis. RIGHT KIDNEY AND URETER: No suspicious masses. Assessment limited by lack of IV contrast. There are some very small nonobstructing intrarenal calculi. No hydronephrosis or hydroureter. LEFT KIDNEY AND URETER: No suspicious masses. Assessment limited by lack of IV contrast. Cannot ent irely rule out a 2 mm calculus at the left UVJ. No hydronephrosis or hydroureter. AORTA AND RETROPERITONEUM: No aneurysm. No retroperitoneal masses or adenopathy. BOWEL AND PERITONEAL CAVITY: No obvious masses or inflammatory changes. No free fluid. APPENDIX: Normal. PELVIS, BLADDER, AND ABDOMINAL WALL:No abnormal masses. No free fluid. Bladder normal. BONES: No significant findings. OTHER: No other significant finding. IMPRESSION: A tiny nonobstructing right intrarenal calculi. Cannot entirely exclude a 2 mm calculus at the left UVJ. It is possible that this represents a phlebolith. Correlate clinically. COMMENT: Quality ID # [id number]: Final reports with documentation of one or more dose reduction techniques (e.g., Automated exposure control, adjustment of the mA and/or kV according to patient size, use of iterative reconstruction technique) TECHNICAL DOCUMENTATION: JOB ID: [id number] [employer]- All Rights Reserved Reading location - IP/workstation name: [email or web address]
[2018-12-11 18:53] VITALS: BP 107/74
== END 2018-12-11 18:58 | disposition home or self-care (01) ==
LOC: ER 15:19
DX: N20.1 Calculus of ureter (principal); R10.9 Unspecified abdominal pain; M54.5 Low back pain; G89.29 Other chronic pain; Z88.5 Allergy status to narcotic agent
CPT/HCPCS: 99284; 96361; 96374; 81025; 81001; 74176; J1885; J7030

== ENCOUNTER 2018-12-12 09:17 | Emergency (ER) | payer BC ==
[2018-12-12 09:24] VITALS: BP 127/80
[2018-12-12] MEDS ORDERED: TAMSULOSIN HCL 0.4 MG CAP.SR.24H PO ONE (10:04)
--- NOTE | 2018-12-12 10:06 | ER Document Report ---
HPI - HPI Patient complains to provider of: low back pain Time Seen by Provider: 12/12/18 09:49 Onset: Other Quality of pain: Achy Severity: Severe Pain Level: 5 Context: Patient presents emergency department with complaints of low back pain. She reports pain started on Saturday she felt like maybe something popped. She denies trauma. Denies fever vomiting diarrhea. Denies pain with void. She reports she did notice blood last week in her urine. And she had blood yesterday when she wiped. She denies history of IV drug use. Denies urinary bowel incontinence or retention. Patient was evaluated in this emergency department last yesterday was treated for low back pain with muscle relaxers. Patient reports is not touching the pain. Patient is very tearful crying. Moves very slowly Associated Symptoms: None Exacerbated by: Supine, Movement Relieved by: Denies Similar symptoms previously: Yes Recently seen / treated by doctor: Yes - CONSTITUTIONAL Constitutional: DENIES: Fever, Chills - EENT EENT: DENIES: Sore Throat, Ear Pain, Eye problems - NEURO Neurology: DENIES: Headache, Weakness, Vision blurred, Dizzinesss / Vertigo - CARDIOVASCULAR Cardiovascular: DENIES: Chest pain - RESPIRATORY Respiratory: DENIES: Trouble Breathing, Coughing - GASTROINTESTINAL Gastrointestinal: DENIES: Abdominal Pain, Black / Bloody Stools - URINARY Urinary: DENIES: Dysuria, Urgency, Frequency - REPRODUCTIVE Reproductive: DENIES: : - MUSCULOSKELETAL Musculoskeletal: DENIES: Extremity pain Past Medical History - General Information source: Patient Last Menstrual Period: unsure neg preg test 12/10 - Social History Smoking Status: Unknown if Ever Smoked Cigarette use (# per day): No Frequency of alcohol use: None Drug Abuse: None Occupation: daycare Lives with: Family Family History: Reviewed & Not Pertinent, CVA, DM, Hyperlipidemia, Hypertension, Malignancy, Thyroid Disfunction. denies: Arthritis Patient has suicidal ideation: No Patient has homicidal ideation: No Neurological Medical History: Reports: Hx Migraine Renal/ Medical History: Reports: Hx Kidney Stones. Denies: Hx Peritoneal D ialysis Musculoskeletal Medical History: Reports Hx Musculoskeletal Trauma - sprains Skin Medical History: Reports Hx Eczema Psychiatric Medical History: Reports: Hx Anxiety, Hx Depression Past Surgical History: Reports: Hx Myringotomy, Hx Tubal Ligation - Immunizations Immunizations up to date: No Hx Diphtheria, Pertussis, Tetanus Vaccination: No Vertical Provider Document - CONSTITUTIONAL Agree With Documented VS: Yes Exam Limitations: No Limitations General Appearance: WD/WN, No Apparent Distress - INFECTION CONTROL TRAVEL OUTSIDE OF THE [place] IN LAST 30 DAYS: No - HEENT HEENT: Atraumatic, Normal ENT Exam, Normocephalic, PERRLA. negative: Conjuctival Injection, Pharyngeal Exudate, Pharyngeal Erythema, Tympanic Membrane Red, Tympanic Membrane Bulging - NECK Neck: Normal Inspection, Supple. negative: Lymphadenopathy-Left, Lymphadenopathy-Right - RESPIRATORY Respiratory: Breath Sounds Normal, No Respiratory Distress - CARDIOVASCULAR Cardiovascular: Regular Rate - GI/ABDOMEN Gastrointestinal: Abdomen Soft, Abdomen Non-Tender - BACK Back: Normal Inspection - No obvious deformity good distal movement and sensation no weakness. negative: CVA Tenderness-Right, CVA Tenderness-Left - MUSCULOSKELETAL/EXTREMETIES Musculoskeletal/Extremeties: MAEW, FROM - NEURO Level of Consciousness: Awake, Alert, Appropriate Motor/Sensory: No Motor Deficit - DERM Integumentary: Warm, Dry Adult Front & Back Diagram: 1 - reports low back pain radiates to her hips Course - Re-evaluation Re-evalutation: 12/12/18 10:[address] scan from yesterday which notes intrarenal calculi. Possible patient is passing a kidney stone. Discussed this with patient. Instructed patient on medications. Also instructed patient to rest, return to the emergency department for increasing pain fever, concerns. No trauma, x-ray not indicated at this time. Dictation of this chart was performed using voice recognition software; the refore, there may be some unintended grammatical errors. - Vital Signs Vital signs: Temp Pulse Resp BP Pulse Ox 98.0 F 95 16 127/80 H 100 12/12/18 09:23 12/12/18 09:23 12/12/18 09:23 12/12/18 09:23 12/12/18 09:23 Discharge - Discharge Clinical Impression: Low back pain, Renal calculi Condition: Stable Disposition: HOME, SELF-CARE Instructions: Flomax ([facility]), Kidney Stone ([facility]), Low Back Pain ([facility]), Oral Narcotic Medication ([facility]) Additional Instructions: *You have been evaluated for back pain, renal calculi *Take medication as prescribed Push fluids *Follow up with a primary care provider within one week *Return to ED for worsening condition, changes, needs Monitor your blood pressure. Your blood pressure was elevated today. This may be because you were anxious, in pain or because you need medication. It is important to follow up with your primary care provider for full evaluation. Prescriptions: Oxycodone HCl/Acetaminophen [Percocet 5-325 mg Tablet] 1 tab PO ASDIR PRN #10 tablet PRN Reason: Tamsulosin HCl [Flomax 0.4 mg Cap.sr] 0.4 mg PO DAILY #7 cap.sr.24h Forms: Elevated Blood Pressure
== END 2018-12-12 10:15 | disposition home or self-care (01) ==
LOC: ER 09:17
DX: N20.0 Calculus of kidney (principal); M54.5 Low back pain; Z98.51 Tubal ligation status
CPT/HCPCS: 99283

== ENCOUNTER → 2019-05-01 | Outpatient (CLI) | payer BC ==
[2019-05-01 17:32] LABS: FREE T4 (FREE THYROXINE) 0.81 ng/dL (0.78-2.19)
[2019-05-01 17:47] LABS: THYROID STIMULATING HORMONE 0.84 uIU/mL (0.47-4.68)
== END ==
LOC: OD 16:28
PROVIDERS: ATTEND Psychiatry & Neurology Psychiatry
DX: F41.1 Generalized anxiety disorder (principal)
CPT/HCPCS: 36415; 84439; 84443

== ENCOUNTER 2019-08-17 22:14 | Emergency (ER) | payer BC ==
--- NOTE | 2019-08-17 22:57 | ER Document Report ---
ED Medical Screen (RME) - General Chief Complaint: Urinary Problem Stated Complaint: URINARY PROBLEM Time Seen by Provider: 08/17/19 22:55 Primary Care Provider: JOHN SYLVESTER MD [Primary Care Provider] - Follow up as needed Notes: HPI: 28-year-old female presenting to the emergency department complaining of not feeling well worsening over the last month with weight gain and left flank pain. Patient states that she has been having intermittent abdominal pain issues for 6 years. 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 States she had an ultrasound done of the abdomen which showed "something on the left kidney". Patient states she had a CT at [facility] 2 weeks ago which showed "a blocked kidney". Patient does not have dysuria but states that she does not seem to make much urine. Patient denies fever. Denies vomiting although she does complain of reflux symptoms over the last 2 weeks. I have greeted and performed a rapid initial assessment of this patient. A comprehensive ED assessment and evaluation of the patient, analysis of test results and completion of the medical decision making process will be conducted by additional ED providers PHYSICAL EXAMINATION: GENERAL: Well-appearing, well-nourished and in no acute distress. HEAD: Atraumatic, normocephalic. EYES: sclera anicteric, conjunctiva are normal. ENT: Moist mucous membranes. NECK: Normal range of motion LUNGS: Normal work of breathing, lung sounds clear to auscultation HEART: 2+ radial pulses bilaterally. Regular rate and rhythm, heart rate 86 ABD: limited by positioning for exam in triage. Minimal tenderness through the left flank on palpation EXTREMITIES: no pitting or edema. No cyanosis. NEUROLOGICAL: No focal neurological deficits. Moves all extremities spontaneously and on command. PSYCH: Normal mood, normal affect. SKIN: Warm, Dry, normal turgor, no rashes or lesions noted. TRAVEL OUTSIDE OF THE [place] IN LAST 30 DAYS: Yes - [place] - Related Data Allergies/Adverse Reactions: codeine [Codeine] Allergy (Verified 12/12/18 09:18) Past Medical History - Social History Family history: None Neurological Medical History: Reports: Hx Migraine Renal/ Medical History: Reports: Hx Kidney Stones. Denies: Hx Peritoneal Dialysis Musculoskeltal Medical History: Reports Hx Musculoskeletal Trauma - sprains Skin Medical History: Reports Hx Eczema Psychiatric Medical History: Reports: Hx Anxiety, Hx Depression Past Surgical History: Reports: Hx Myringotomy, Hx Tubal Ligation - Immunizations Immunizations up to date: No Hx Diphtheria, Pertussis, Tetanus Vaccination: No Doctor's Discharge - Discharge Referrals: JOHN SYLVESTER MD [Primary Care Provider] - Follow up as needed
[2019-08-17 23:22] LABS: ABSOLUTE BASOPHILS # (AUTO) 0.1 10^3/uL (0.0-0.2); ABSOLUTE EOSINOPHILS # (AUTO) 0.4 10^3/uL (0.0-0.6); ABSOLUTE LYMPHOCYTES (AUTO) 3.1 10^3/uL (0.5-4.7); ABSOLUTE MONOCYTES (AUTO) 0.8 10^3/uL (0.1-1.4); ABSOLUTE NEUT (AUTO) 5.5 10^3/uL (1.7-8.2); BASOPHILS % (AUTO) 0.6 % (0-2); EOSINOPHILS % (AUTO) 4.5 % (0-6); HEMATOCRIT 39.5 % (36.0-47.0); HEMOGLOBIN 13.3 g/dL (12.0-15.5); LYMPHOCYTES % (AUTO) 31.4 % (13-45); MEAN CORPUSCULAR HEMOGLOBIN 29.1 pg (27.0-33.4); MEAN CORPUSCULAR HGB CONC 33.7 g/dL (32.0-36.0); MEAN CORPUSCULAR VOLUME 87 fl (80-97); MONOCYTES % (AUTO) 7.8 % (3-13); PLATELET COUNT 364 10^3/uL (150-450); RED BLOOD COUNT 4.57 10^6/uL (3.72-5.28); RED CELL DISTRIBUTION WIDTH 13.7 % (11.5-14.0); SEGMENTED NEUTROPHILS % (AUTO) 55.7 % (42-78); TOTAL CELLS COUNTED % (AUTO) 100 %; WHITE BLOOD COUNT 9.9 10^3/uL (4.0-10.5)
[2019-08-17 23:31] LABS: APPEARANCE,URINE SLIGHTLY-CLOUDY; BILIRUBIN,URINE NEGATIVE (NEGATIVE); COLOR,URINE YELLOW; GLUCOSE, URINE NEGATIVE (NEGATIVE); KETONES,URINE NEGATIVE (NEGATIVE); LEUKOCYTE ESTERASE,URINE SMALL (NEGATIVE); NITRITE,URINE NEGATIVE (NEGATIVE); PROTEIN,URINE NEGATIVE (NEGATIVE); URINE SPECIFIC GRAVITY 1.024; UROBILINOGEN,URINE NEGATIVE mg/dL (<2.0)
[2019-08-17 23:48] LABS: ALBUMIN 4.4 g/dL (3.5-5.0); ALKALINE PHOSPHATASE 55 U/L (38-126); ANION GAP 7 (5-19); ASPARTATE AMINO TRANSFERASE 24 U/L (14-36); BILIRUBIN,TOTAL 0.8 mg/dL (0.2-1.3); BLOOD UREA NITROGEN 19 mg/dL (7-20); CALCIUM 9.4 mg/dL (8.4-10.2); CARBON DIOXIDE 28 mmol/L (22-30); CHLORIDE 104 mmol/L (98-107); GLUCOSE 81 mg/dL (75-110); POTASSIUM 4.3 mmol/L (3.6-5.0); TOTAL PROTEIN 7.6 g/dL (6.3-8.2)
--- NOTE | 2019-08-18 02:47 | ER Document Report ---
ED GI/ - General Chief Complaint: Urinary Problem Stated Complaint: URINARY PROBLEM Time Seen by Provider: 08/17/19 22:55 Primary Care Provider: JOHN SYLVESTER MD [NO LOCAL MD] - Follow up as needed Mode of Arrival: Ambulatory Information source: Patient Notes: Ms. Daniel is a 28-year-old female with a history of abdominal pain anterior left upper quadrant region. Patient has been seen by a wirer helper Dr. Arcos and he has had a colonoscopy ordered on her as well. Colonoscopy reports by patient as normal. An ultrasound was done by Dr. Arcos who had some suspicion that there was a mass that he saw near her or on her left kidney. Patient had a CT scan done at a neighboring hospital 2 to 3 weeks ago weeks ago. Patient was reported after the CT scan that she had a blockage of her left kidney. And that she needed to have follow-up with a urologist. At that point she was referred to a urological group where she called to get an appointment which was greater than 1 month post the day of her CT scan. Patient does not note any more about this report other than she was told there was a blockage of her kidney. Patient is urinating without difficulty and has a history of kidney stones but was not told that there was a stone blocking her ureter. Patient denies fever chills nausea vomiting diarrhea and denies flank pain. Patient p resents to us today because she is impatient on waiting for her urological appointment 10 days from now at this point. However the patient has not had any urgent or emergent need to be in the hospital as far as she knows in terms of symptoms. Patient has had kidney stones in the past and states that her discomfort in her urological symptoms do not relate to passing a kidney stone at this time. TRAVEL OUTSIDE OF THE [place] IN LAST 30 DAYS: Yes - [place] - [facility] Onset: Other - Few days ago. Patient also states that she feels as though her upper GI has dyspepsia and acid reflux type symptoms. Timing/Duration: Gradual Quality of pain: No pain Severity at maximum: Mild Severity in ED: Mild Pain Level: 0 Location: [facility] Vaginal bleeding (Compared to normal period): None LMP: A few weeks ago. Patient is on no control method. Associated symptoms: None Recently seen / treated by doctor: No - Most recent is a CT scan of abdomen pelvis at an outside facility - Related Data Allergies/Adverse Reactions: codeine [Codeine] Allergy (Verified 12/12/18 09:18) Past Medical History - Social History Smoking Status: Never Smoker Frequency of alcohol use: Social Family History: Reviewed & Not Pertinent, CVA, DM, Hyperlipidemia, Hypertension, Malignancy, Thyroid Disfunction. denies: Arthritis Patient has suicidal ideation: No Patient has homicidal ideation: No Neurological Medical History: Reports: Hx Migraine Renal/ Medical History: Reports: Hx Kidney Stones. Denies: Hx Peritoneal Dialysis Musculoskeletal Medical History: Reports Hx Musculoskeletal Trauma - sprains Skin Medical History: Reports Hx Eczema Psychiatric Medical History: Reports: Hx Anxiety, Hx Depression Past Surgical History: Reports: Hx Myringotomy, Hx Tubal Ligation - Immunizations Immunizations up to date: No Hx Diphtheria, Pertussis, Tetanus Vaccination: No Review of Systems - Review of Systems Constitutional: Weight gain EENT: No symptoms reported Cardiovascular: No symptoms reported Respiratory: No symptoms reported Gastrointestinal: No symptoms reported, Abdominal pain Genitourinary: No symptoms reported Female Genitourinary: No symptoms reported Musculoskeletal: No symptoms reported Skin: No symptoms reported Hematologic/Lymphatic: No symptoms reported Neurological/Psychological: No symptoms reported -: Yes All other systems reviewed and negative Physical Exam - Vital signs Vitals: Temp Pulse 98.3 F 86 08/17/19 22:53 08/17/19 22:53 Interpretation: Normal - General General appearance: Appears well, Alert - HEENT Head: Normocephalic, Atraumatic Eyes: Normal Pupils: PERRL - Respiratory Respiratory status: No respiratory distress Chest status: Nontender Breath sounds: Normal Chest palpation: Normal - Cardiovascular Rhythm: Regular Heart sounds: Normal auscultation Murmur: No - Abdominal Inspection: Normal Distension: No distension Bowel sounds: Normal Tenderness: Nontender Organomegaly: No organomegaly - Back Back: Normal, Nontender - Extremities General upper extremity: Normal inspection, Nontender, Normal color, Normal ROM, Normal temperature General lower extremity: Normal inspection, Nontender, Normal color, Normal ROM, Normal temperature, Normal weight bearing. No: Stiven's sign - Neurological Neuro grossly intact: Yes Cognition: Normal Orientation: AAOx4 [place] Coma Scale Eye Opening: Spontaneous [place] Coma Scale Verbal: Oriented [place] Coma Scale Motor: Obeys Commands [place] Coma Scale Total: 15 Speech: Normal Motor strength normal: LUE, RUE, LLE, RLE Sensory: Normal - Psychological Associated symptoms: Normal affect, Normal mood - Skin Skin Temperature: Warm Skin Moisture: Dry Skin Color: Normal Course - Re-evaluation Re-evalutation: 08/18/19 05:59 Patient is resting comfortably showing no signs of distress at this time. Discussed with patient results of her labs which complete blood count and chemistries are all normal with normal kidney function. Urinalysis not showing any signs of urinary tract infection or stones. Ultrasound within normal limits. Plan is for patient to begin stool softeners which she says she has MiraLAX at home. Therefore no prescriptions are necessary. Patient will require a work note for today. - Vital Signs Vital signs: Temp Pulse Resp BP Pulse Ox 98.3 F 90 18 116/54 L 99 08/17/19 22:53 08/17/19 22:54 08/17/19 22:54 08/17/19 22:54 08/17/19 22:54 - Laboratory Result Diagrams: 08/17/19 23:00 08/17/19 23:00 Laboratory results interpreted by me: 08/17/19 23:00 Ur Leukocyte Esterase SMALL H - Diagnostic Test Radiology reviewed: Image reviewed, Reports reviewed Radiology results interpreted by me: 08/18/19 05:58 Radiology reviewed results of kidney ureter bladder plain film x-ray shows increased stool otherwise no obstruction. Also ultrasound retroperitoneal and low both kidneys showed normal-appearing kidneys without any acute process. A CT scan was compared and relationship to the ultrasound. The CT scan was done on December 11, 2018 and at the time of the CT did show that there was a punctate calcific stone in the right kidney. Nonobstructing. Discharge - Discharge Clinical Impression: Abdominal pain Qualifiers: Abdominal location: left upper quadrant Qualified Code(s): R10.12 - Left upper quadrant pain Constipation Qualifiers: Constipation type: slow transit constipation Qualified Code(s): K59.01 - Slow transit constipation Condition: Stable Disposition: HOME, SELF-CARE Instructions: Abdominal Pain ([facility]) Additional Instructions: Constipation Constipation is a common problem. It is especially likely as you get older. Constipation is a common cause of abdominal pain, but sometimes causes no symptoms at all. Causes of constipation include certain medications, dehydration, diets, inactivity, and low-fiber intake. Rarely, it can be a symptom of underlying disease. The physician has evaluated you for this. Avoid constipation by eating a diet high in fiber, fruits, and vegetables. Drink plenty of liquids. Get regular exercise. If possible, avoid constipating medicines like narcotic pain medication. Some vitamin tablets can cause constipation. Stool softeners may be needed for difficult cases. An excellent stool softener is Konsyl which is available at [employer], and [employer]. Just add a teaspoon to a glass of pineapple or orange juice daily or twice a day if needed. Laxatives are useful for occasional constipation. You should use them only when necessary. Too-frequent use can make your bowels dependent on them. Some over the counter laxatives available without prescription are: Milk of Magnesia, 1-2 tablespoons twice a day Dulcolax, 5 mg pill or 10 mg suppository. Citrate of Magnesia, 4-5 ounces a day for a day or two For acute constipation, Fleet's Enemas and Dulcolax suppositories are helpful. Chronic, usp use of laxatives or enemas is not a good idea. Your bowel may become dependant on them. You do not need to have a bowel movement every day. Many people do fine with a bowel movement every three or four days. You should call your doctor or return for re-evaluation if you pass blood in the stool, or if you develop fever or increasing abdominal pain. Inasmuch as you have a concern whether or not there is a blocked kidney on the left which is what you were reported from a CT scan at another hospital a few weeks ago. Recommend that you follow-up with your primary care or your wirer helper for further definition of this problem. As you know you have an appointment with urology in 10 days. If there is any urgency or emergency need for you to be seen sooner discussed this with your primary care or wirer helper who ordered the test. Also if you have further problems do not hesitate to return to the emergency department. Objectively today your kid varun function is normal your ultrasound of your kidneys both are normal in size and function and lab work is completely normal. Forms: Return to Work Referrals: JOHN SYLVESTER MD [NO LOCAL MD] - Follow up as needed
[2019-08-18] MEDS ORDERED: NORMAL SALINE 1000 ML 1,000 ML IV ONE (03:36)
--- NOTE | 2019-08-18 04:07 | RADIOLOGY REPORT (SQ) ---
EXAM DESCRIPTION: XR ABDOMEN 1 VIEW (KUB) COMPLETED DATE/TME: 08/18/2019 03:22 CLINICAL HISTORY: 28 years, Female, left abd pain. COMPARISON: None. NUMBER OF VIEWS: 2 TECHNIQUE: AP abdomen LIMITATIONS: None. FINDINGS: Nonspecific, nonobstructive bowel gas pattern. Large amount of stool in the colon. Evaluation of free air limited on a supine view IMPRESSION: Abundant stool in the colon copyright 2010 [employer] All Rights Reserved
[2019-08-18 04:12] LABS: APPEARANCE,URINE CLEAR; BILIRUBIN,URINE NEGATIVE (NEGATIVE); COLOR,URINE YELLOW; GLUCOSE, URINE NEGATIVE (NEGATIVE); KETONES,URINE NEGATIVE (NEGATIVE); LEUKOCYTE ESTERASE,URINE NEGATIVE (NEGATIVE); NITRITE,URINE NEGATIVE (NEGATIVE); PROTEIN,URINE NEGATIVE (NEGATIVE); URINE SPECIFIC GRAVITY 1.024; UROBILINOGEN,URINE NEGATIVE mg/dL (<2.0)
--- NOTE | 2019-08-18 04:46 | RADIOLOGY REPORT (SQ) ---
EXAM DESCRIPTION: US RETROPERITONEUM LIMITED COMPLETED DATE/TME: 08/18/2019 03:35 CLINICAL HISTORY: 28 years, Female, REPORTED HISTORY OF LEFT KIDNEY WITH OBSTRUCTION. COMPARISON: CT 12/11/2018 TECHNIQUE: Transverse and longitudinal sonographic images of the kidneys and urinary bladder LIMITATIONS: None. FINDINGS: Punctate right renal calculus seen on CT is not appreciated on the ultrasound. The right kidney measures 10.4 x 4.3 x 4.5 cm, the left 11.3 x 5.0 x 5.4 cm. No renal mass or calculus. No hydronephrosis. No perinephric fluid collection. The cortical medullary differentiation is preserved bilaterally. Prominent column of Jimmy seen of the left kidney is noted. Urinary bladder is incompletely distended, limiting its evaluation IMPRESSION: Unremarkable appearance to the kidneys bilaterally copyright 2010 [employer]- All Rights Reserved
[2019-08-18 06:43] VITALS: BP 112/68
== END 2019-08-18 06:35 | disposition home or self-care (01) ==
LOC: ER 22:14
DX: R10.12 Left upper quadrant pain (principal); R10.11 Right upper quadrant pain; K59.01 Slow transit constipation; Z98.51 Tubal ligation status; Z88.6 Allergy status to analgesic agent
CPT/HCPCS: 99284; 96360; 36415; 84703; 85025; 80053; 81001; 74018; 76775; J7030

== ENCOUNTER → 2019-09-16 | Outpatient (CLI) | payer BC ==
[~2019-09-16] MED LIST: FUROSEMIDE INJ/PF 40 MG/4 ML SDV ONE
--- NOTE | 2019-09-16 15:45 | RADIOLOGY REPORT (SQ) ---
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 RADIONUCLIDE AND DOSE: 4.97 millicuries Tc-99m MAG 3 The route of agent administration: Intravenous ADDITIONAL DRUGS AND DOSES: Lasix 20 mg. TECHNIQUE: Following administration of the radionuclide, flow images of the kidneys were acquired fo llowed by sequential imaging for 30 minutes. Intravenous Lasix was given at the midpoint of the study . Time activity curves were generated. LIMITATIONS: None. FINDINGS: ACTIVITY LEFT KIDNEY: 51.5 %. ACTIVITY RIGHT KIDNEY: 48.5 %. There is prompt uptake of activity in the kidneys bilaterally simultaneous with passage of the aortic bolus. There is normal excretion with progression of activity from the renal cortex into the collec ting system and subsequently into the ureters. Time activity curves demonstrate normal excretory pat tern with no abnormal retention. No obstructive changes. Time to half maximal on the left is 9.4 mi nutes. Time to half maximal activity on the right is 6.4 minutes. IMPRESSION: Normal Lasix renogram. No evidence of obstructive uropathy. TECHNICAL DOCUMENTATION: JOB ID: [id number] 2010 [email or web address]- All Rights Reserved Reading location - IP/workstation name: [email or web address]
== END ==
LOC: RAD 13:39
PROVIDERS: ATTEND Nurse Practitioner Family
DX: N13.5 Crossing vessel and stricture of ureter without hydronephrosis (principal)
CPT/HCPCS: 78708; A9562; J1940

== ENCOUNTER 2020-02-14 21:52 | Emergency (ER) | payer BC ==
[2020-02-15 00:15] LABS: APPEARANCE,URINE SLIGHTLY-CLOUDY; BILIRUBIN,URINE NEGATIVE (NEGATIVE); COLOR,URINE YELLOW; GLUCOSE, URINE NEGATIVE (NEGATIVE); KETONES,URINE NEGATIVE (NEGATIVE); LEUKOCYTE ESTERASE,URINE LARGE (NEGATIVE); NITRITE,URINE NEGATIVE (NEGATIVE); PROTEIN,URINE NEGATIVE (NEGATIVE); URINE SPECIFIC GRAVITY 1.027
[2020-02-15 01:01] LABS: ABSOLUTE BASOPHILS # (AUTO) 0.1 10^3/uL (0.0-0.2); ABSOLUTE EOSINOPHILS # (AUTO) 0.3 10^3/uL (0.0-0.6); ABSOLUTE LYMPHOCYTES (AUTO) 3.2 10^3/uL (0.5-4.7); ABSOLUTE MONOCYTES (AUTO) 0.7 10^3/uL (0.1-1.4); ABSOLUTE NEUT (AUTO) 5.6 10^3/uL (1.7-8.2); BASOPHILS % (AUTO) 0.6 % (0-2); EOSINOPHILS % (AUTO) 2.9 % (0-6); HEMATOCRIT 38.7 % (36.0-47.0); HEMOGLOBIN 13.2 g/dL (12.0-15.5); LYMPHOCYTES % (AUTO) 32.4 % (13-45); MEAN CORPUSCULAR HEMOGLOBIN 29.4 pg (27.0-33.4); MEAN CORPUSCULAR HGB CONC 34.1 g/dL (32.0-36.0); MEAN CORPUSCULAR VOLUME 86 fl (80-97); MONOCYTES % (AUTO) 7.6 % (3-13); PLATELET COUNT 374 10^3/uL (150-450); RED BLOOD COUNT 4.48 10^6/uL (3.72-5.28); SEGMENTED NEUTROPHILS % (AUTO) 56.5 % (42-78); TOTAL CELLS COUNTED % (AUTO) 100 %; WHITE BLOOD COUNT 9.9 10^3/uL (4.0-10.5)
--- NOTE | 2020-02-15 01:04 | ER Document Report ---
ED General - General Chief Complaint: Abdominal Pain Stated Complaint: POSSIBLE CONSTIPATION/PAIN IN PELVIC AREA Time Seen by Provider: 02/15/20 00:18 Primary Care Provider: CELESTINA GUTIÉRREZ NP [Primary Care Provider] - Follow up as needed TRAVEL OUTSIDE OF THE [place] IN LAST 30 DAYS: No - HPI Patient complains to provider of: abd pain Notes: patient reports significant left sided abdominal pain ongoing for some time she has had pelvic US, abdominal CT, colonoscopy/endoscopy, and has seen urology/obgyn/and gi for her symptoms w/o clear explanation she states she came to the ED for another opinion due to ongoing left sided abdominal pain she states the pain is difficult to describe she is urinating more frequently but denies pain w/urination or blood in urine she denies vaginal discharge or bleeding she denies chance of she has been moving her bowels normally - Related Data Allergies/Adverse Reactions: codeine [Codeine] Allergy (Verified 02/14/20 23:37) Past Medical History - Social History Smoking Status: Never Smoker Frequency of alcohol use: Occasional Drug Abuse: None Family History: Reviewed & Not Pertinent, CVA, DM, Hyperlipidemia, Hypertension, Malignancy, Thyroid Disfunction. denies: Arthritis Patient has homicidal ideation: No Neurological Medical History: Reports: Hx Migraine Renal/ Medical History: Reports: Hx Kidney Stones. Denies: Hx Peritoneal D ialysis Musculoskeletal Medical History: Reports Hx Musculoskeletal Trauma - sprains Skin Medical History: Reports Hx Eczema Psychiatric Medical History: Reports: Hx Anxiety, Hx Depression Past Surgical History: Reports: Hx Myringotomy, Hx Tubal Ligation - Immunizations Immunizations up to date: No Hx Diphtheria, Pertussis, Tetanus Vaccination: No Review of Systems - Review of Systems Constitutional: No symptoms reported EENT: No symptoms reported Cardiovascular: No symptoms reported Respiratory: No symptoms reported Gastrointestinal: Abdominal pain. denies: Vomiting Genitourinary: Frequency. denies: Dysuria Female Genitourinary: No symptoms reported Musculoskeletal: No symptoms reported Skin: No symptoms reported Hematologic/Lymphatic: No symptoms reported Neurological/Psychological: No symptoms reported Physical Exam - Vital signs Vitals: Temp Pulse Resp BP Pulse Ox 98.8 F 96 16 122/77 99 02/14/20 21:58 02/14/20 21:58 02/14/20 21:58 02/14/20 21:58 02/14/20 21:58 Interpretation: Normal - General General appearance: Appears well, Alert - HEENT Head: Normocephalic, Atraumatic Eyes: Normal Pupils: PERRL - Respiratory Respiratory status: No respiratory distress Chest status: Nontender Breath sounds: Normal Chest palpation: Normal - Cardiovascular Rhythm: Regular Heart sounds: Normal auscultation Murmur: No - Abdominal Inspection: Normal Distension: No distension Bowel sounds: Normal Tenderness: Tender - suprapubic Organomegaly: No organomegaly - Back Back: Normal, Nontender - Extremities General upper extremity: Normal inspection, Nontender, Normal color, Normal ROM, Normal temperature General lower extremity: Normal inspection, Nontender, Normal color, Normal ROM, Normal temperature, Normal weight bearing. No: Stiven's sign - Neurological Neuro grossly intact: Yes Cognition: Normal Orientation: AAOx4 Section Coma Scale Eye Opening: Spontaneous [place] Coma Scale Verbal: Oriented Section Coma Scale Motor: Obeys Commands Section Coma Scale Total: 15 Speech: Normal Motor strength normal: LUE, RUE, LLE, RLE Sensory: Normal - Psychological Associated symptoms: Normal affect, Normal mood - Skin Skin Temperature: Warm Skin Moisture: Dry Skin Color: Normal Course - Re-evaluation Re-evalutation: 02/15/20 01:03 patient w/ UTI on UA not abdomen is benign and vitals reassuring will screen w/ abdominal labs although sounds like patient is having ongoing abdominal pain that she has had extensive outpt workup and likely needs to c ontinue seeing her specialists as outpt for further evaluation of this discomfort 02/15/20 01:21 patient's bili is up with direct bili being 0 - this does not favor biliary obstruction her abdomen is benign on repeat exam we will refer to GI for ongoing care we will start abx as an outpt and discuss return precautions - Vital Signs Vital signs: Temp Pulse Resp BP Pulse Ox 98.8 F 96 16 122/77 99 02/14/20 23:32 02/14/20 21:58 02/14/20 21:58 02/14/20 21:58 02/14/20 21:58 - Laboratory Result Diagrams: 02/15/20 00:38 02/15/20 00:38 Laboratory results interpreted by me: 02/14/20 02/15/20 23:57 00:38 Total Bilirubin 1.7 H Urine Urobilinogen 2.0 H Ur Leukocyte Esterase LARGE H Discharge - Discharge Clinical Impression: UTI (urinary tract infection) Qualifiers: Urinary tract infection type: acute cystitis Hematuria presence: without hematuria Qualified Code(s): N30.00 - Acute cystitis without hematuria Abdominal pain Qualifiers: Abdominal location: lower abdomen, unspecified Qualified Code(s): R10.30 - Lower abdominal pain, unspecified Condition: Stable Disposition: HOME, SELF-CARE Instructions: Abdominal Pain ([facility]), Urinary Tract Infection ([facility]) Additional Instructions: please take the antibiotic as directed return to the ED with worsening symptoms or concerns Follow up with your GI specialist for ongoing care and evaluation of your abdominal pain today your only lab abnormality was evidence of urinary tract infection and elevated bilirubin level Prescriptions: Nitrofurantoin Monohyd/M-Cryst [Macrobid 100 mg Capsule] 100 mg PO BID #10 cap Referrals: CELESTINA GUTIÉRREZ, COMMUNITY [employer] WORKER [Primary Care Provider] - Follow up as needed
[2020-02-15 01:10] LABS: ALBUMIN 4.6 g/dL (3.5-5.0); ALKALINE PHOSPHATASE 63 U/L (38-126); ANION GAP 8 (5-19); ASPARTATE AMINO TRANSFERASE 20 U/L (14-36); BILIRUBIN,TOTAL 1.7 mg/dL (0.2-1.3); BLOOD UREA NITROGEN 15 mg/dL (7-20); CALCIUM 9.7 mg/dL (8.4-10.2); CARBON DIOXIDE 25 mmol/L (22-30); CHLORIDE 106 mmol/L (98-107); GLUCOSE 90 mg/dL (75-110); TOTAL PROTEIN 7.9 g/dL (6.3-8.2)
[2020-02-15 01:48] VITALS: BP 101/66
== END 2020-02-15 01:48 | disposition home or self-care (01) ==
LOC: ER 21:52
DX: N30.00 Acute cystitis without hematuria (principal); Z88.6 Allergy status to analgesic agent; Z88.5 Allergy status to narcotic agent
CPT/HCPCS: 36415; 80053; 81001; 81025; 83690; 85025; 99283

== ENCOUNTER 2020-04-08 07:04 | Day surgery (SDC) | payer BC ==
[2020-04-05 10:56] LABS: HEMATOCRIT 39.7 % (36.0-47.0); HEMOGLOBIN 13.5 g/dL (12.0-15.5); MEAN CORPUSCULAR HEMOGLOBIN 29.2 pg (27.0-33.4); MEAN CORPUSCULAR VOLUME 86 fl (80-97); PLATELET COUNT 379 10^3/uL (150-450); RED BLOOD COUNT 4.63 10^6/uL (3.72-5.28); RED CELL DISTRIBUTION WIDTH 13.6 % (11.5-14.0); WHITE BLOOD COUNT 7.6 10^3/uL (4.0-10.5)
[2020-04-05 11:22] LABS: APPEARANCE,URINE CLEAR; BILIRUBIN,URINE NEGATIVE (NEGATIVE); COLOR,URINE YELLOW; GLUCOSE, URINE NEGATIVE (NEGATIVE); KETONES,URINE NEGATIVE (NEGATIVE); LEUKOCYTE ESTERASE,URINE LARGE (NEGATIVE); NITRITE,URINE NEGATIVE (NEGATIVE); PROTEIN,URINE NEGATIVE (NEGATIVE); URINE SPECIFIC GRAVITY 1.023; UROBILINOGEN,URINE NEGATIVE mg/dL (<2.0)
[~2020-04-08 07:04] MED LIST changes: +DEXAMETHASONE SOD PHOSPHATE INJ 4 MG/1 ML VIAL ONE; -FUROSEMIDE INJ/PF 40 MG/4 ML SDV ONE; +GLYCOPYRROLATE 1 MG/5 ML VIAL ONE; +KETOROLAC TROMETHAMINE 60 MG/2 ML SDV ONE; +LACTATED RINGERS 1000 ML IV PRN; +LIDOCAINE 2% INJ-PF (20 MG/ML) 2 ML AMPUL ONE; +NEOSTIGMINE METHYLSULFATE 10 MG/10 ML VIAL ONE; +ONDANSETRON HCL INJ/PF 4 MG/2 ML SDV ONE; +ROCURONIUM BROMIDE INJ 50 MG/5 ML VIAL IV ONE; +SUCCINYLCHOLINE CHLORIDE INJ 200 MG/10 ML VIAL ONE
[2020-04-08] MEDS ORDERED: FENTANYL CITRATE INJ/PF 100 MCG/2 ML AMPUL ONE ×2 (09:19→11:17)
[2020-04-08] MEDS ORDERED: MIDAZOLAM 2 MG/2 ML INJ ONE (09:19)
[2020-04-08] MEDS ORDERED: MORPHINE SULFATE 10 MG/ML INJ ONE (09:20)
[2020-04-08] MEDS ORDERED: PROPOFOL INJ 200 MG/20 ML VIAL IV ONE (09:20)
[2020-04-08] MEDS ORDERED: FENTANYL CITRATE INJ/PF 100 MCG/2 ML AMPUL IV PRN (10:06)
[2020-04-08] MEDS ORDERED: MORPHINE SULFATE 10 MG/ML INJ IV PRN (10:06)
[2020-04-08] MEDS ORDERED: DIPHENHYDRAMINE HCL 50 MG/ML VIAL IV PRN (10:06)
[2020-04-08] MEDS ORDERED: MEPERIDINE HCL/PF INJ 25 MG/1 ML DISP.SYRIN IV PRN (10:06)
[2020-04-08] MEDS ORDERED: PROMETHAZINE HCL INJ 25 MG/1 ML VIAL IV PRN (10:06)
--- NOTE | 2020-04-08 10:55 | PDOC CONSULTATION ---
Consultation Consult Date: 04/08/20 Provider Consulted: CORINA SOLANO History of Present Illness History of Present Illness: JENELLE CELESTE is a 29 year old female, healthy, currently undergoing laparoscopic removal of endometriosis because of moderately severe abdominal p ain as per the information received. By the admitting electrical logger Dr. Maravilla. I was consulted intraoperatively because of the presence of thick adhesions between the ovary and anterior surface of the distal sigmoid colon just above the peritoneal reflection Past Medical History Cardiac Medical History: Denies: Coronary Artery Disease, Myocardial Infarction, Hypertension Pulmonary Medical History: Denies: Asthma, Bronchitis, Chronic Obstructive Pulmonary Disease (COPD), Pneumonia Neurological Medical History: Reports: Migraine Denies: Seizures Musculoskeltal Medical History: Denies: Arthritis Skin Medical History: Reports: Eczema Psychiatric Medical History: Reports: Depression Hematology: Denies: Anemia Past Surgical History Past Surgical History: Reports: Tubal Ligation Social History Smoking Status: Never Smoker Family History Family History: Reviewed & Not Pertinent, CVA, DM, Hyperlipidemia, Hypertension, Malignancy, Thyroid Disfunction. denies: Arthritis Parental Family History Reviewed: No Children Family History Reviewed: No Sibling(s) Family History Reviewed.: No Medication/Allergy Home Medications: No Home Medications 04/05/20 Allergies/Adverse Reactions: codeine [Codeine] Allergy (Verified 04/08/20 07:36) Physical Exam Vital Signs: Temp Pulse Resp BP Pulse Ox 98.4 F 77 18 122/72 100 04/08/20 07:15 04/08/20 07:15 04/08/20 07:15 04/08/20 07:15 04/08/20 07:15 Intake & Output 04/07/20 04/08/20 04/09/20 06:59 06:59 06:59 Intake Total 0 Balance 0 Weight 85.28 kg General appearance: PRESENT: other - Intubated, under general anesthesia, under surgical bed in lithotomy position draped in the usual fashion GI/Abdominal exam: PRESENT: other - Intra-abdominal exam laparoscopy present on multiple adhesions between sigmoid colon and left ovary Results Laboratory Results: 04/05/20 10:10 Assessment & Plan - Plan Summary Plan Summary: Assessment: 29-year-old female complaining of abdominal pain Diffuse intra-abdominal endometriosis Endometrial lesions between left ovary and anterior surface of the sigmoid colon just above the peritoneal reflection Plan: Laparoscopic division of endometrial lesions between sigmoid colon and left ovary No consent was obtained from the patient as she was under general anesthesia and I was consulted emergently, intraoperatively
[2020-04-08] MEDS ORDERED: IBUPROFEN 800 MG TABLET PO PRN (10:58)
[2020-04-08] MEDS ORDERED: RINGERS SOLUTION,LACTATED 1,000 ML IV PRN (10:58)
[2020-04-08] MEDS ORDERED: OXYCODONE-ACETAMINOPHEN 5-325 MG TABLET PO PRN ×2 (10:58)
[2020-04-08] MEDS ORDERED: KETOROLAC TROMETHAMINE INJ/PF 30 MG/1 ML SDV IV PRN (10:58)
--- NOTE | 2020-04-08 11:01 | Operative Report ---
Operative Report DATE OF SURGERY: 04/08/20 PREOPERATIVE DIAGNOSIS: Intra-abdominal peritoneal endometriosis; endometrial a dhesions between the left ovary and sigmoid anterior surface POSTOPERATIVE DIAGNOSIS: Same OPERATION: Laparoscopic lysis of adhesions SURGEON: CORINA SOLANO 1ST DEVELOPMENT TECHNOLOGIST: [place] REILLY ANESTHESIA: GA TISSUE REMOVED OR ALTERED: None COMPLICATIONS: None ESTIMATED BLOOD LOSS: None during my part of the procedure INTRAOPERATIVE FINDINGS: Endometrial tissue between left ovary and anterior distal sigmoid colon PROCEDURE: Procedure was done in the operating room, the patient was anesthetized and in lithotomy position, laparoscopic ports were placed within the peritoneal cavity, the uterus and left ovary were elevated and adhesions were noted between the left ovary and the anterior surface of the distal sigmoid colon just above the peritoneal reflection. The adhesions were made of endometrial tissue. With the use of the LigaSure, the endometrial tissue tethering the left ovary and anterior sigmoid colon were taken down without difficulty. The surface of the colon was checked and no injury was noted. This portion of the procedure was therefore concluded. The rest of the procedure will be dictated by Dr. Reilly
--- NOTE | 2020-04-08 11:05 | Operative Report ---
Operative Report DATE OF SURGERY: 04/08/20 PREOPERATIVE DIAGNOSIS: Pelvic pain POSTOPERATIVE DIAGNOSIS: Endometriosis with the left ovary tube in descending colon stuck to the back of the uterus OPERATION: Laparoscopy with lysis of adhesions SURGEON: AZ DE SANTIAGO ANESTHESIA: GA TISSUE REMOVED OR ALTERED: Lysis of adhesions COMPLICATIONS: None ESTIMATED BLOOD LOSS: 20 cc INTRAOPERATIVE FINDINGS: Patient has endometriosis with adhesion of the left tube and ovary and descending colon attached to the back of the uterus. PROCEDURE: Patient was taken the OR and placed in supine position. General anesthesia was induced. She is placed in dorsolithotomy position using Terrence stirrups. Her ab domen perineum and vagina were prepared and draped in a sterile fashion. Her bladder was drained with a red rubber catheter. A sponge stick was placed in the vagina for manipulation of the uterus. An incision was made at the umbilicus and the natural umbilical defect was identified and dilated with Cortney clamp allowing a blunt port to be placed. Laparoscopy confirmed appropriate placement. The abdomen was insufflated with CO2 gas. View of the pelvis was good. A suprapubic port was placed sharply under laparoscopic visualization which allowed a blunt probe to be used. The left ovary tube and descending colon were all attached to the back of the uterus with evidence of an endometriosis. At this point a general surgery consult was obtained. A left lateral port was placed under laparoscopic visualization. Elevating the uterus the ovary and tube were taken off the back of the uterus using sharp and blunt dissection. A bit of clear fluid was draining from the ovarian cyst on the left which also helped increase exposure. The general surgeon was able to dissect the sigmoid descending colon off the back of the uterus using the LigaSure device. There were the hemosiderin deposits in the cul-de-sac consistent with endometriosis as well. There is no evidence of any bowel injury. At this point the ovary to and tube were free as well as the colon. I did not perform the D&C as we found the source of her pain with the laparoscopy. I was also considering that we dissected from the backside of the uterus and I was concerned with risk of perforation of the uterus with a D&C. The findings at laparoscopy explained the appearance on ultrasound of the uterus as well. At this point the procedure was stopped the pelvis was irrigated and fluid removed. There was no active bl eeding. The gas was allowed to escape from the abdomen and the ports were removed. The fascia at the umbilicus was closed with a 2-0 Vicryl stitch and the skin was closed with 4-0 undyed Vicryl sutures. The sponge stick was removed from the vagina. She is placed back in supine position taken recovery room in stable condition. Hopefully her pain will be helped with the dissection. We may need to consider hysterectomy if she is completed childbearing if her pain were to be a continuing.
--- NOTE | 2020-04-08 11:07 | Discharge Summary ---
Discharge Summary (SDC) - Discharge Final Diagnosis: Endometriosis Date of Surgery: 04/08/20 Discharge Date: 04/08/20 Condition: Good Prescriptions: Ibuprofen [Motrin 800 mg Tablet] 800 mg PO Q8H PRN #30 tablet PRN Reason: Discharge Diet: Regular Discharge Activity: Balance Activity w/Rest, Pelvic Rest Report the Following to Your Physician Immediately: Fever over 101 Degrees
[2020-04-08] MEDS ORDERED: OXYCODONE-ACETAMINOPHEN 5-325 MG TABLET ONE (11:57)
[2020-04-08 14:08] VITALS: BP 104/64
== END 2020-04-08 12:55 | disposition home or self-care (01) ==
LOC: OROUT 07:04
PROVIDERS: ATTEND Obstetrics & Gynecology
DX: N80.0 Endometriosis of uterus (principal); N80.1 Endometriosis of ovary; N80.3 Endometriosis of pelvic peritoneum; N73.6 Female pelvic peritoneal adhesions (postinfective); Z03.818 Encounter for observation for suspected exposure to other biological agents ruled out; Z98.51 Tubal ligation status; Z88.5 Allergy status to narcotic agent
CPT/HCPCS: 36415; 85027; 81025; 81001; 00840; 49329; U0003; J2250; J3490 ×3; J1100; J1885; J3010; J2270; J2710; J0330; J2405; J2704; C9803; 840; 87635

== ENCOUNTER 2020-04-12 09:37 | Emergency (ER) | payer BC ==
[2020-04-12] MEDS ORDERED: KETOROLAC TROMETHAMINE INJ/PF 30 MG/1 ML SDV IV ONE (10:38)
--- NOTE | 2020-04-12 10:38 | ER Document Report ---
ED Medical Screen (RME) - General Chief Complaint: Abdominal Pain Stated Complaint: LOW ABDOMINAL PAIN Time Seen by Provider: 04/12/20 10:05 Primary Care Provider: AZ DE SANTIAGO MD [Primary Care Provider] - Follow up as needed TRAVEL OUTSIDE OF THE [place] IN LAST 30 DAYS: No - HPI Notes: 04/12/20 10:36 29-year-old female presents emergency room for complaints of lower abdominal pain and pelvic pain since having a laparoscopic procedure done on April 08 where they found that she had endometriosis and also had thick adhesions between her ovary and the distal sigmoid colon. Patient states that she woke up this morning at 830 with severe pain in her lower abdomen and pelvic area, which is different from the pain that she experienced after her laparoscopic procedure. She denies any fevers but does report some nausea them, reports pain is 4/5. Ports pain is sharp stabbing and throbbing. Reports she has not had a bowel movement since April 07, she is passing some flatus. Typically she does have a bowel movement every 2 to 3 days. Last menstrual cycle was March 24, 2020. I have greeted and performed a rapid initial assessment of this patient. A comprehensive ED assessment and evaluation of the patient, analysis of test results and completion of the medical decision making process will be conducted by additional ED providers. PHYSICAL EXAMINATION: GENERAL: Well-appearing, well-nourished and in no acute distress. CV: s1, s2 regular LUNGS: No respiratory distress abd: Right lower, left lower quadrant tenderness on palpation, Musculoskeletal: Normal range of motion NEUROLOGICAL: Normal speech, normal gait. SKIN: Warm, Dry, normal turgor, no rashes or lesions noted. laparoscopic scar to left lower quadrant without any erythema induration warmth to touch. - Related Data Allergies/Adverse Reactions: codeine [Codeine] Allergy (Verified 04/12/20 09:56) Home Medications: motrin 800mg. percocet Past Medical History - Social History Chew tobacco use (# tins/day): No Frequency of alcohol use: None Drug Abuse: None Family history: None - Past Medical History Cardiac Medical History: Denies: Hx Coronary Artery Disease, Hx Heart Attack, Hx Hypertension Pulmonary Medical History: Denies: Hx Asthma, Hx Bronchitis, Hx COPD, Hx Pneumonia Neurological Medical History: Reports: Hx Migraine. Denies: Hx Cerebrovascular Accident, Hx Seizures Renal/ Medical History: Reports: Hx Kidney Stones. Denies: Hx Peritoneal Dialysis Musculoskeltal Medical History: Denies Hx Arthritis, Reports Hx Musculoskeletal Trauma - sprains Skin Medical History: Reports Hx Eczema Psychiatric Medical History: Reports: Hx Anxiety, Hx Depression Past Surgical History: Reports: Hx Myringotomy, Hx Tubal Ligation - Immunizations Immunizations up to date: No Hx Diphtheria, Pertussis, Tetanus Vaccination: Yes Doctor's Discharge - Discharge Referrals: AZ DE SANTIAGO MD [Primary Care Provider] - Follow up as needed
[2020-04-12] MEDS ORDERED: ONDANSETRON HCL INJ/PF 4 MG/2 ML SDV IV ONE (10:39)
[2020-04-12] MEDS ORDERED: NORMAL SALINE 1000 ML 1,000 ML IV ONE (10:39)
[2020-04-12] MEDS ORDERED: KETOROLAC TROMETHAMINE 60 MG/2 ML SDV IM ONE (10:49)
[2020-04-12] MEDS ORDERED: ACETAMINOPHEN 325 MG TABLET PO ONE (10:56)
[2020-04-12 11:03] LABS: ABSOLUTE EOSINOPHILS # (AUTO) 0.3 10^3/uL (0.0-0.6); ABSOLUTE MONOCYTES (AUTO) 0.5 10^3/uL (0.1-1.4); ABSOLUTE NEUT (AUTO) 5.8 10^3/uL (1.7-8.2); BASOPHILS % (AUTO) 0.5 % (0-2); EOSINOPHILS % (AUTO) 3.2 % (0-6); HEMATOCRIT 39.5 % (36.0-47.0); HEMOGLOBIN 13.9 g/dL (12.0-15.5); LYMPHOCYTES % (AUTO) 23.3 % (13-45); MEAN CORPUSCULAR HEMOGLOBIN 29.9 pg (27.0-33.4); MEAN CORPUSCULAR HGB CONC 35.2 g/dL (32.0-36.0); MEAN CORPUSCULAR VOLUME 85 fl (80-97); MONOCYTES % (AUTO) 6.3 % (3-13); PLATELET COUNT 371 10^3/uL (150-450); RED BLOOD COUNT 4.64 10^6/uL (3.72-5.28); RED CELL DISTRIBUTION WIDTH 13.7 % (11.5-14.0); SEGMENTED NEUTROPHILS % (AUTO) 66.7 % (42-78); TOTAL CELLS COUNTED % (AUTO) 100 %; WHITE BLOOD COUNT 8.7 10^3/uL (4.0-10.5)
[2020-04-12 11:22] LABS: APPEARANCE,URINE SLIGHTLY-CLOUDY; BILIRUBIN,URINE NEGATIVE (NEGATIVE); COLOR,URINE AMBER; GLUCOSE, URINE NEGATIVE (NEGATIVE); KETONES,URINE TRACE mg/dL (NEGATIVE); LEUKOCYTE ESTERASE,URINE MODERATE (NEGATIVE); NITRITE,URINE NEGATIVE (NEGATIVE); PROTEIN,URINE 30 mg/dL (NEGATIVE)
[2020-04-12 11:29] LABS: ALBUMIN 4.5 g/dL (3.5-5.0); ALKALINE PHOSPHATASE 63 U/L (38-126); ANION GAP 11 (5-19); ASPARTATE AMINO TRANSFERASE 16 U/L (14-36); BILIRUBIN,DIRECT 0.3 mg/dL (0.0-0.4); BILIRUBIN,TOTAL 1.3 mg/dL (0.2-1.3); BLOOD UREA NITROGEN 12 mg/dL (7-20); CALCIUM 9.2 mg/dL (8.4-10.2); CARBON DIOXIDE 23 mmol/L (22-30); CHLORIDE 107 mmol/L (98-107); GLUCOSE 94 mg/dL (75-110); POTASSIUM 4.3 mmol/L (3.6-5.0); TOTAL PROTEIN 7.5 g/dL (6.3-8.2)
[2020-04-12 11:30] LABS: C-REACTIVE PROTEIN < 5.0 mg/L (<10.0)
[2020-04-12] MEDS ORDERED: MORPHINE SULFATE 10 MG/ML INJ IV ONE (12:20)
--- NOTE | 2020-04-12 13:42 | RADIOLOGY REPORT (SQ) ---
EXAM DESCRIPTION: U/S NON-OB PELVIS W/O DOP IMAGES COMPLETED DATE/TIME: 04/12/2020 1:19 pm REASON FOR STUDY: pelvic pain, lap done 04/08, hxof endo COMPARISON: None. TECHNIQUE: Dynamic and static grayscale images acquired of the pelvis via transvaginal approach and recorded on PACS. Additional selected color Doppler and spectral images recorded. LIMITATIONS: None. FINDINGS: UTERUS: Contour normal. No mass. ENDOMETRIAL STRIPE: No focal or generalized thickening. No masses. RIGHT OVARY AND DOPPLER: Normal size. No worrisome masses. Normal arterial vascular flow without evid ence for torsion. LEFT OVARY AND DOPPLER: Ovary not visualized. FREE FLUID: None noted. OTHER: No other significant finding. IMPRESSION: Left ovary not visualized. Otherwise normal. TECHNICAL DOCUMENTATION: JOB ID: [id number] 2010 [employer]- All Rights Reserved Rev-12/13 Reading location - IP/workstation name: [email or web address]
--- NOTE | 2020-04-12 14:09 | RADIOLOGY REPORT (SQ) ---
EXAM DESCRIPTION: CT ABD/PELVIS WITH IV ORAL IMAGES COMPLETED DATE/TIME: 04/12/2020 1:55 pm REASON FOR STUDY: lower abd pain,lap procedure 04/08,no bm since 04/07 COMPARISON: 12/11/2018 TECHNIQUE: CT scan of the abdomen and pelvis performed using helical scanning technique with dynamic intravenous contrast injection. Oral contrast. Images reviewed with lung, soft tissue, and bone win dows. Reconstructed coronal and sagittal MPR images reviewed. Delayed images for evaluation of the ur inary system also acquired. All images stored on PACS. All CT scanners at this facility use dose modulation, iterative reconstruction, and/or weight based d osing when appropriate to reduce radiation dose to as low as reasonably achievable (ALARA). [facility]: Dose Right [facility]: CareDose [facility]: Dose Right [facility]: Teradose 4D [facility]: [email or web address] CONTRAST TYPE AND DOSE: contrast/concentration: Isovue 350.00 mmol/ml; Total Contrast Delivered: 96. 0 ml; Total Saline Delivered: 71.0 ml RENAL FUNCTION: BUN 12 creatinine 0.58 RADIATION DOSE: CT Rad equipment meets quality standard of care and radiation dose reduction techniq ues were employed. CTDIvol: 14.1 - 18.5 mGy. DLP: 1889 mGy-cm.. LIMITATIONS: None. FINDINGS: LOWER CHEST: No significant findings. No nodules or infiltrates. LIVER: Normal size. No masses. No dilated ducts. SPLEEN: Normal size. No focal lesions. PANCREAS: No masses. No significant calcifications. No adjacent inflammation or peripancreatic fluid collections. Pancreatic duct not dilated. GALLBLADDER: No identified stones by CT criteria. No inflammatory changes to suggest cholecystitis. ADRENAL GLANDS: No significant masses or asymmetry. RIGHT KIDNEY AND URETER: No solid masses. No significant calcifications. No hydronephrosis or hyd roureter. LEFT KIDNEY AND URETER: No solid masses. No significant calcifications. No hydronephrosis or hydr oureter. AORTA AND VESSELS: No aneurysm. No dissection. Renal arteries, SMA, celiac without stenosis. RETROPERITONEUM: No retroperitoneal adenopathy, hemorrhage or masses. BOWEL AND PERITONEAL CAVITY: There is some retained stool. There is apparent mild thickening of the wall of the sigmoid colon. APPENDIX: Not identified. PELVIS: No mass. No free fluid. Normal bladder. ABDOMINAL WALL: No masses. No hernias. BONES: No significant or acute findings. OTHER: No other significant finding. IMPRESSION: Cannot exclude mild constipation. Questionable mild thickening of the wall of the sigmo id colon. Correlate clinically for inflammatory bowel disease. TECHNICAL DOCUMENTATION: JOB ID: [id number] Quality ID # [id number]: Final reports with documentation of one or more dose reduction techniques (e.g., Au tomated exposure control, adjustment of the mA and/or kV according to patient size, use of iterative reconstruction technique) 2010 [employer]- All Rights Reserved Reading location - IP/workstation name: [email or web address]
--- NOTE | 2020-04-12 15:29 | ER Document Report ---
ED General - General Chief Complaint: Abdominal Pain Stated Complaint: LOW ABDOMINAL PAIN Time Seen by Provider: 04/12/20 10:05 Primary Care Provider: AZ DE SANTIAGO MD [Primary Care Provider] - Follow up as needed Mode of Arrival: Ambulatory Information source: Patient TRAVEL OUTSIDE OF THE [place] IN LAST 30 DAYS: No - HPI Notes: Patient presents with abdominal pain. She states it is severe and constant. Is on the lower abdomen. Nothing makes it better or worse. She states approximate 4 days ago she had surgery for endometriosis and she has been taking Percocet at home but is not relieving the pain. She states the pain is a crampy type sensation like labor pains. She states she has also had some vaginal bleeding since the surgery. She has called and talked with the gynecology office. She states she is also had some constipation. She denies any fevers. Some nausea but no vomiting. She has had decreased appetite. - Related Data Allergies/Adverse Reactions: codeine [Codeine] Allergy (Verified 04/12/20 09:56) Home Medications: motrin 800mg. percocet Past Medical History - General Information source: Patient - Social History Smoking Status: Never Smoker Chew tobacco use (# tins/day): No Frequency of alcohol use: None Drug Abuse: None Family History: Reviewed & Not Pertinent, CVA, DM, Hyperlipidemia, Hypertension, Malignancy, Thyroid Disfunction. denies: Arthritis - Past Medical History Cardiac Medical History: Denies: Hx Coronary Artery Disease, Hx Heart Attack, Hx Hypertension Pulmonary Medical History: Denies: Hx Asthma, Hx Bronchitis, Hx COPD, Hx Pneumonia Neurological Medical History: Reports: Hx Migraine. Denies: Hx Cerebrovascular Accident, Hx Seizures Renal/ Medical History: Reports: Hx Kidney Stones. Denies: Hx Peritoneal Dialysis Musculoskeletal Medical History: Denies Hx Arthritis, Reports Hx Musculoskeletal Trauma - sprains Skin Medical History: Reports Hx Eczema Psychiatric Medical History: Reports: Hx Anxiety, Hx Depression Past Surgical History: Reports: Hx Myringotomy, Hx Tubal Ligation - Immunizations Immunizations up to date: No Hx Diphtheria, Pertussis, Tetanus Vaccination: Yes Review of Systems - Review of Systems Constitutional: denies: Chills, Fever Cardiovascular: denies: Chest pain, Palpitations Respiratory: denies: Cough, Short of breath -: Yes All other systems reviewed and negative Physical Exam - Vital signs Interpretation: Normal - General General appearance: Appears well, Alert - HEENT Head: Normocephalic, Atraumatic Eyes: Normal Pupils: PERRL - Respiratory Respiratory status: No respiratory distress Chest status: Nontender Breath sounds: Normal Chest palpation: Normal - Cardiovascular Rhythm: Regular Heart sounds: Normal auscultation Murmur: No - Abdominal Inspection: Normal Distension: No distension Bowel sounds: Normal Tenderness: Tender - Mild diffuse tenderness to palpation lower abdomen. No rebound or guarding. Organomegaly: No organomegaly - Back Back: Normal, Nontender - Extremities General upper extremity: Normal inspection, Nontender, Normal color, Normal ROM, Normal temperature General lower extremity: Normal inspection, Nontender, Normal color, Normal ROM, Normal temperature, Normal weight bearing. No: Stiven's sign - Neurological Neuro grossly intact: Yes Cognition: Normal Orientation: AAOx4 [place] Coma Scale Eye Opening: Spontaneous [place] Coma Scale Verbal: Oriented [place] Coma Scale Motor: Obeys Commands [place] Coma Scale Total: 15 Speech: Normal Motor strength normal: LUE, RUE, LLE, RLE Sensory: Normal - Psychological Associated symptoms: Normal affect, Normal mood - Skin Skin Temperature: Warm Skin Moisture: Dry Skin Color: Normal Course - Re-evaluation Re-evalutation: 04/12/20 15:26 Patient presents with abdominal pain after endometrial surgery. CT scan shows no evidence of any new acute pathology. No complications from the surgery. Her vital signs been stable as has her laboratories. It does appear that she has some constipation by CT scan and she states this has been an issue. At this ti me I might try the patient on some GoLYTELY at home and have her follow-up with gynecology as she has not yet started the hormone treatment for her endometriosis. I have also recommended to her that if the pain and problem with constipation continues she will need to see gastroenterology and discuss colonoscopy. Patient CT scan shows some questionable thickening of the sigmoid colon and its is correlate for inflammatory bowel disease patient's presentation does not seem consistent for inflammatory bowel disease. However I did discuss inflammatory bowel disease with the patient so that she knows what to watch for. I did explain as well that this is going to be diagnosed by colonoscopy. 04/12/20 15:26 - Laboratory Result Diagrams: 04/12/20 10:55 04/12/20 10:55 Laboratory results interpreted by me: 04/12/20 10:55 Urine Protein 30 H Urine Ketones TRACE H Urine Blood MODERATE H Urine Urobilinogen 2.0 H Ur Leukocyte Esterase MODERATE H Urine Ascorbic Acid 20 H - Diagnostic Test Radiology reviewed: Image reviewed, Reports reviewed Discharge - Discharge Clinical Impression: Acute abdominal pain Constipation Qualifiers: Constipation type: other constipation type Qualified Code(s): K59.09 - Other constipation Condition: Stable Disposition: HOME, SELF-CARE Instructions: Abdominal Pain ([facility]), Constipation ([facility]) Prescriptions: Peg 3350/Na Sulf,Bicarb,Cl/KCl [Golytely Solution 4000 ml] 4,000 ml PO DAILY #1 bottle Referrals: AZ DE SANTIAGO MD [Primary Care Provider] - Follow up in 3-5 days (follow up as scheduled)
[2020-04-12 15:55] VITALS: BP 106/69
== END 2020-04-12 15:57 | disposition home or self-care (01) ==
LOC: ER 09:37
DX: R10.30 Lower abdominal pain, unspecified (principal); K59.09 Other constipation; Z98.51 Tubal ligation status
CPT/HCPCS: 99285; 96372; 96361; 96374; 96375; 36415; 83690; 85025; 81025; 86140; 80053; 81001; 76856; 74177; J1885; J2270; J2405; J7030

== ENCOUNTER → 2020-08-04 | Outpatient (CLI) | payer BC ==
--- NOTE | 2020-08-05 09:30 | RADIOLOGY REPORT (SQ) ---
EXAM DESCRIPTION: MRI PELVIS COMBO IMAGES COMPLETED DATE/TIME: 08/04/2020 6:18 pm REASON FOR STUDY: (N80.9)ENDOMETRIOSIS, UNSPECIFIED N80.9 ENDOMETRIOSIS, UNSPECIFIED COMPARISON: CT from 04/12/2020. TECHNIQUE: Multiplanar multisequence imaging performed without and with contrast including axial, sa gittal and coronal T2, axial T, axial gradient fat sat T1, axial, sagittal and coronal fat sat T2 pos t contrast. CONTRAST TYPE AND DOSE: 15 mL Prohance. RENAL FUNCTION: Not needed. LIMITATIONS: None. FINDINGS: BLADDER AND URETHRA: No focal bladder wall thickening or nodularity. Smooth mucosa. The urethra has smooth contour with no focal asymmetry. No abnormal enhancement. No focal lesions. PELVIC SOFT TISSUES: No large implants detected. Cul-de-sac looks normal. UTERUS: Small nabothian cysts. Otherwise normal. RIGHT OVARY: Normal size. No masses. LEFT OVARY: Presumably associated with the left ovary is a 2 cm oval mass. This projects adjacent to the dorsal left uterine fundus. The lesion is hyperintense T2 with elevated T1 signal, slight christy ng/fluid fluid levels. Probable hemorrhagic cyst. Endometrioma is in the differential. Please moe elate with axial image 9/30 and adjacent slices. FREE FLUID: None. PELVIC SKELETAL STRUCTURES: No abnormal marrow signal. EXTRA PELVIS SOFT TISSUES: No masses. OTHER: No other significant finding. IMPRESSION: 1. Presumed left ovarian hemorrhagic cyst. Endometrioma is in the differential. 2. Otherwise relatively unremarkable MRI of the pelvis without and with contrast. TECHNICAL DOCUMENTATION: JOB ID: [id number] 2010 [employer]- All Rights Reserved Reading location - IP/workstation name: [email or web address]
== END ==
LOC: RAD 16:29
PROVIDERS: ATTEND Student in an Organized Health Care Education/Training Program
DX: N80.9 Endometriosis, unspecified (principal)
CPT/HCPCS: 72197; A9576